=== PATIENT | male | born 1940 | race Caucasian/White ===

== ENCOUNTER 2017-05-29 06:56 | Day surgery (SDC) | payer MEDICARE ==
[2017-05-29 08:11] VITALS: BP 143/71; TEMP 97.8
--- NOTE | 2017-05-29 09:24 | RAD ---
LUMBAR SPINE: Lateral flexion/extension views of the lumbar spine with bending views. 4 view series FINDINGS: Neutral view reveals no significant subluxation. No compression fracture. There is disc degenerative narrowing within the imaged low thoracic and lumbar spine, notably at the lumbosacral junction. Promi nent facet osteoarthritis seen at the mid to lower lumbar spine. There is atherosclerosis. IMPRESSION: No obvious abnormal translational motion, or significant subluxation. POS: [facility]
--- NOTE | 2017-05-29 09:38 | RAD ---
LUMBAR SPINE MYELOGRAM: INDICATION: Low back pain and lumbar radiculopathy. PROCEDURE: Informed consent was obtained, and the patient was transferred to the interventional suite. Early Breastfeeding Care Specialist im aging was performed prior to the procedure. The patient was then placed into a prone position, and the low back was prepped and draped in the sta ndard sterile fashion. Topical anesthesia was achieved with 1% lidocaine buffered with sodium bicarb ibis. Using a 22 gauge needle, uneventful access was obtained into the thecal sac from a right inte rlaminar approach at the L4-5 level. Clear color CSF was noted at the needle hub. Subsequently, 9 c c of Isovue M200 was instilled into the thecal sac. This was performed under real-time fluoroscopy w ith appropriate contrast opacification of the thecal sac demonstrated during the exam with adequate c ontrast opacification achieved. The needle was removed. The patient tolerated the procedure well wi thout evidence of complication. The patient was then transferred to CT Department to undergo further imaging. Please reference separate CT myelogram for additional details. Radiation Exposure Data: 0.1 minute intermittent fluoroscopy. IMPRESSION: Technically successful lumbar spine myelogram. POS: [facility]
--- NOTE | 2017-05-29 10:15 | CT ---
LUMBAR SPINE CT WITH CONTRAST CT LUMBAR MYELOGRAM: CLINICAL HISTORY: Lumbar radiculopathy. FINDINGS: The conus medullaris terminates at the L1 level. Multilevel end plate degenerative change is present . There is disk space narrowing of the L5-S1 level. No significant subluxation or compression defor mity. Multilevel bilateral facet osteoarthritis is present, the greatest inferiorly. 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 L5-S1: No significant compromise of the central canal. There is mild osseous narrowing of the left neural foramen. No significant right foraminal compromise. L4-5: There is moderate central canal stenosis as a result of broad-based disk-osteophyte complex. There is mild left foraminal narrowing. No high-grade right foraminal stenosis. L3-4: Moderate central canal stenosis results in broad-based disk-osteophyte present. There is mode rate left foraminal stenosis and minimal narrowing of the right neural foramen. L2-3: There is mild central canal stenosis due to broad-based disk-osteophyte. There is mild left f oraminal narrowing. No high-grade right foraminal compromise. L1-2: There is no significant compromise of central canal or neural foramina. IMPRESSION: 1. 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 Multilevel degenerativ e changes are outlined above. 2. Incidental note of vascular disease as above. POS: [facility]
[2017-05-29 11:24] VITALS: BMI 26.0
[2017-05-29] MEDS ORDERED: Iopamidol-M 200 41% 20 ML VIAL ONE (13:20)
== END 2017-05-29 10:05 | disposition home or self-care (01) ==
LOC: RAD 06:56
PROVIDERS: ATTEND Physician Assistant Surgical
PROC: B00B1ZZ Plain Radiography of Spinal Cord using Low Osmolar Contrast (ICD-10-PCS; principal; 2017-05-29)
DX: M54.16 Radiculopathy, lumbar region (principal); Z88.1 Allergy status to other antibiotic agents; Z88.2 Allergy status to sulfonamides
CPT/HCPCS: 62304; 72100; 72132

== ENCOUNTER 2017-10-28 10:17 | Outpatient (CLI) | payer MEDICARE ==
--- NOTE | 2017-10-28 12:21 | RAD ---
TWO VIEWS CHEST: HISTORY: Dyspnea. COMPARISON: 10/18/2016 FINDINGS: Two views of the chest show a cardiomediastinal silhouette, which is at the upper limits of normal in size. The patient is status post sternotomy. There is a stable small left pleural effusion. Incre ased interstitial markings are present. IMPRESSION: Small stable left pleural effusion. POS: [facility]
== END 2017-10-28 10:18 | disposition home or self-care (01) ==
LOC: RAD 10:17
PROVIDERS: ATTEND Internal Medicine Pulmonary Disease
DX: R06.00 Dyspnea, unspecified (principal); J90 Pleural effusion, not elsewhere classified
CPT/HCPCS: 71046

== ENCOUNTER 2018-03-06 10:30 | Inpatient (IN) | payer MEDICARE ==
[2018-03-06] MEDS ORDERED: Acetaminophen 500 MG TAB ONE (11:14)
[2018-03-06 11:21] LABS: #Basophils 0.1 thou/uL (0.0-0.2); #Lymphocytes 1.5 thou/uL (1.20-3.40); #Monocytes 1.6 thou/uL (0.11-0.59); #Neutrophils 10.1 thou/uL (1.40-6.50); %Basophils 0.6 % (0.0-1.0); %Eosinophils 0.3 % (0.0-10.0); %Monocytes 11.7 % (0.0-10.0); %Neutrophils 76.4 % (42.0-75.0); Hemoglobin 14.7 g/dL (14.0-18.0); Mean Corpuscular Hemoglobin 26.1 pg (27.0-31.0); Mean Platelet Volume 11.9 fL (7.4-10.4); Platelet Count 234 thou/uL (130-400); RBC Distribution Width 13.4 % (11.5-14.5); Red Blood Cell (RBC) Count 5.62 mill/uL (4.70-6.10); White Blood Cell (WBC) Count 13.3 thou/uL (4.8-10.8)
[2018-03-06 11:35] LABS: ALT (SGPT) 22 U/L (8-55); AST (SGOT) 16 U/L (5-34); Albumin 4.1 g/dL (3.4-4.8); Alkaline Phosphatase 89 U/L (40-150); Anion Gap 14 mmol/L (10-20); BUN (Urea Nitrogen) 8 mg/dL (8.4-25.7); Bilirubin, Total 0.8 mg/dL (0.2-1.2); Calc. Creatinine Clearance 0 mL/min (70-130); Calcium 9.6 mg/dL (7.8-10.44); Carbon Dioxide 26 mmol/L (23-31); Chloride 102 mmol/L (98-107); Estimated GFR-MDRD 87; Globulin 3.8 g/dL (2.4-3.5); Glucose 118 mg/dL (83-110); Potassium 3.9 mmol/L (3.5-5.1); Protein, Total 7.9 g/dL (5.8-8.1); Sodium 138 mmol/L (136-145)
[2018-03-06 11:39] LABS: CKMB 1.4 ng/mL (0-6.6); Troponin I Less than 0.010 ng/mL (< 0.028)
[2018-03-06] MEDS ORDERED: Cefepime 2 GM VIAL ONE (11:39)
[2018-03-06 11:57] LABS: Bilirubin Negative (Negative); Blood, Urine Negative (Negative); Clarity Slightly Cloudy (Clear); Glucose, Urine (Dipstick) Negative (Negative); Leukocyte Negative (Negative); Nitrite Negative (Negative); Protein, Urine (Dipstick) Trace mg/dL (Neg-Trace); Urobilinogen 0.2 mg/dL (0.2-1.0); pH, Urine 5.5 (5.0-9.0)
--- NOTE | 2018-03-06 12:09 | RAD ---
PA AND LATERAL CHEST: HISTORY: Cough. Shortness of breath. COMPARISON: 09/21/2016 FINDINGS: Interval changes of median sternotomy are seen with postop changes of valvular placement. No lobar c onsolidation, pneumothoraces, or large effusions are seen. There are degenerative changes in the spi ne. The heart size is normal. The aorta is tortuous. Chronic changes are again seen bilaterally. Postop changes in the left lung are redemonstrated. IMPRESSION: Stable examination. POS: [facility]
[2018-03-06 15:38] VITALS: BMI 27.0
[2018-03-06] MEDS ORDERED: Ondansetron ODT 4 MG TAB PO PRN (16:20)
[2018-03-06] MEDS ORDERED: Ondansetron PF 4 MG/2 ML Vial IVP PRN (16:20)
--- NOTE | 2018-03-06 17:12 | HP ---
DATE OF ADMISSION: 03/06/2018 PRIMARY CARE PHYSICIAN: Keegan Porras M.D. PRIMARY LAUNDRY WORKER: Elmo Bloom M.D.. REASON FOR COMPLAINT: Fever with shortness of breath. HISTORY OF PRESENT ILLNESS: Patient is a 77-year-old male with chronic respiratory failure, on home oxygen, and COPD, presented to the emergency room with above complaints. Over the last two days, the patient developed gradual worsening shortness of breath along with fever. His temperature earlier today was around 100 degrees along with intermittent chills. He also had cough with minimal production. He felt generally weak and fatigued. No nausea, vomiting, diarrhea, dysuria, hematuria, urgency, or skin rash reported. He also noticed that his oxygenation was dropping in high 80s despite oxygen supplementation. For this reason, he presented to the emergency room. In the emergency room, his temperature was 102.4 rectally with pulse rate of 123 , blood pressure 124/80, respiration of 25 with O2 saturation of 93% on 2 liter nasal cannula. He received cefepime and Levaquin in the emergency room with IV fluids and Tylenol. PAST MEDICAL HISTORY: 1. Paroxysmal atrial fibrillation. 2. Gastroesophageal reflux disease. 3. Chronic respiratory failure, on home oxygen. 4. Benign prostatic hypertrophy. 5. Chronic obstructive pulmonary disease. 6. Rheumatoid arthritis. 7. Hypertension. PAST SURGICAL HISTORY: 1. Aortic valve replacement. 2. Inguinal hernia surgery. 3. Sinus surgeries. 4. Thoracotomy in 1969 for empyema. 5. Aortic valve replacement. ALLERGIES: Patient is allergic to DOXYCYCLINE, ERYTHROMYCIN, SULFA, and TRIMETHOPRIM. CURRENT HOME MEDICATIONS: Lipitor 10 mg at bedtime, Symbicort 2 puffs b.i.d., vitamin D3 2000 units daily, finasteride 5 mg daily, gabapentin 300 mg twice a day, Plaquenil 200 mg b.i.d., probiotics daily, Protonix 40 mg daily, Flomax 0.4 mg at bedtime, Spiriva daily, aspirin 325 mg daily. SOCIAL HISTORY: Patient currently lives at home with his family. He denies any smoking. He drinks alcohol on a daily basis. He denies any withdrawals in the past. SOCIAL HISTORY: He is FULL CODE, makes his own decisions with the help of his family. FAMILY HISTORY: Negative for premature coronary artery disease. REVIEW OF SYSTEMS: The following complete review of systems was negative, unless otherwise mentioned in the HPI or below: Constitutional: Weight loss or gain, ability to conduct usual activities. Skin: Rash, itching. Eyes: Double vision, pain. ENT/Mouth: Nose bleeding, neck stiffness, pain, tenderness. Cardiovascular: Palpitations, dyspnea on exertion, orthopnea. Respiratory: Shortness of breath, wheezing, cough, hemoptysis, fever or night sweats. Gastrointestinal: Poor appetite, abdominal pain, heartburn, nausea, vomiting, constipation, or diarrhea. Genitourinary: Urgency, frequency, dysuria, nocturia. Musculoskeletal: Pain, swelling. Neurologic/Psychiatric: Anxiety, depression. Allergy/Immunologic: Skin rash, bleeding tendency. PHYSICAL EXAMINATION: VITAL SIGNS: As discussed above. GENERAL: A 77-year-old male, ill-appearing with intermittent coughing. HEENT: Head atraumatic, normocephalic. Sclerae are anicteric. Dry mucous membrane, no oral lesion. NECK: Supple, no JVD, no carotid bruit. LUNGS: Showed diffuse rales, especially at the right base with scattered rhonchi. Minimal wheezing appreciated. No significant accessory muscle use. HEART: S1, S2 present. Regular rate and rhythm. No rubs or gallops appreciated, 2/6 systolic murmur over the mitral area. ABDOMEN: Soft, nontender, somewhat distended. No guarding or rigidity. EXTREMITIES: No edema or calf tenderness. NEUROLOGIC: Grossly nonfocal, moves all four extremities. PSYCHIATRY: Alert, awake, oriented x3. SKIN: Warm and dry. LYMPH NODES: No palpable lymph nodes in the neck. PERIPHERAL VASCULAR: Radial pulses palpable bilaterally. MUSCULOSKELETAL: No joint swelling or tenderness. LABORATORY FINDINGS: WBC 13.3 with hemoglobin 14.7, hematocrit 47.2, platelet 234. Chemistries showed sodium 138, potassium 3.9, chloride 102, bicarbonate 26 , BUN 8, creatinine 0.85. Troponin negative. BNP 53.6. Lactic acid 1.6. Chest x-ray by my review showed questionable infiltrate at the right base. Influenza testing was negative. EKG by my review showed sinus rhythm with left bundle branch block. IMPRESSION: 1. Acute on chronic hypoxic respiratory failure secondary to community- acquired pneumonia, suspected pneumococcal. 2. Sepsis secondary to pneumonia. 3. Hypertension. 4. Daily alcohol use. 5. Gastroesophageal reflux disease. 6. Paroxysmal atrial fibrillation. 7. Chronic obstructive pulmonary disease. 8. Chronic kidney disease stage 2. 9. Benign prostatic hypertrophy. 10. Hyperlipidemia. 11. Left bundle branch block. 12. History of aortic valve replacement. PLAN: The patient will be monitored on the medical floor. We will continue cefepime, Levaquin. We will resume home medications. Continue O2 supplementation. Add thiamine, folic acid, multivitamin. A.m. labs. We will consult Dr. Bloom in a.m. DVT prophylaxis with sequential compression devices. We will consider Lovenox if patient unable to ambulate. Plan of care was discussed with the patient and the family in detail. They stated understanding. MTDD
[2018-03-06] MEDS: Sodium Chloride 0.9% 1,000 ML IV SCH (17:14)
[2018-03-06] MEDS: Mometasone/Formoterol 120 PUFF INHALER INH SCH (18:11)
[2018-03-06] MEDS: Tamsulosin HCl 0.4 MG CAP PO SCH (20:24)
[2018-03-06] MEDS: Gabapentin 300 MG CAP PO SCH (20:24)
[2018-03-06] MEDS: Hydroxychloroquine Sulfate 200 MG TAB PO SCH (20:25)
[2018-03-06] MEDS: guaiFENesin ER 600 MG TAB PO SCH (20:25)
[2018-03-06] MEDS: Atorvastatin Calcium 10 MG TAB PO SCH (20:25)
[2018-03-06] MEDS: Acetaminophen 325 MG TAB PO PRN (20:26)
[2018-03-06] MEDS ORDERED: Famotidine 20 MG TAB PO SCH (21:00)
[2018-03-06] MEDS: Cefepime 1 GM in Sodium Chloride 0.9% 100 ML IVPB SCH (23:46)
[2018-03-07] MEDS: Acetaminophen 325 MG TAB PO PRN ×3 (00:46→21:17)
[2018-03-07 04:58] LABS: #Lymphocytes 1.4 thou/uL (1.20-3.40); #Monocytes 1.9 thou/uL (0.11-0.59); #Neutrophils 10.6 thou/uL (1.40-6.50); %Basophils 0.3 % (0.0-1.0); %Eosinophils 0.1 % (0.0-10.0); %Lymphocytes 9.9 % (21.0-51.0); %Monocytes 13.6 % (0.0-10.0); %Neutrophils 76.1 % (42.0-75.0); Hemoglobin 12.6 g/dL (14.0-18.0); Mean Corpuscular HGB CONC 31.5 g/dL (32.0-36.0); Mean Corpuscular Hemoglobin 27.3 pg (27.0-31.0); Mean Corpuscular Volume 86.6 fL (78.0-98.0); Mean Platelet Volume 10.1 fL (7.4-10.4); Platelet Count 226 thou/uL (130-400); RBC Distribution Width 13.2 % (11.5-14.5); Red Blood Cell (RBC) Count 4.61 mill/uL (4.70-6.10)
[2018-03-07 04:59] LABS: ALT (SGPT) 14 U/L (8-55); AST (SGOT) 13 U/L (5-34); Albumin 3.1 g/dL (3.4-4.8); Alkaline Phosphatase 72 U/L (40-150); Anion Gap 13 mmol/L (10-20); BUN (Urea Nitrogen) 8 mg/dL (8.4-25.7); Bilirubin, Total 0.8 mg/dL (0.2-1.2); Calc. Creatinine Clearance 101 mL/min (70-130); Calcium 8.6 mg/dL (7.8-10.44); Carbon Dioxide 23 mmol/L (23-31); Chloride 106 mmol/L (98-107); Estimated GFR-MDRD Greater than 90; Globulin 3.1 g/dL (2.4-3.5); Glucose 99 mg/dL (83-110); Magnesium 1.7 mg/dL (1.6-2.6); Phosphorus 3.1 mg/dL (2.3-4.7); Potassium 3.7 mmol/L (3.5-5.1); Protein, Total 6.2 g/dL (5.8-8.1); Sodium 138 mmol/L (136-145)
[2018-03-07] MEDS: Mometasone/Formoterol 120 PUFF INHALER INH SCH ×2 (06:48→18:17)
[2018-03-07] MEDS ORDERED: Spiriva 18 MCG CAP (Box of 5 Caps) INH SCH (07:00)
[2018-03-07] MEDS: Finasteride 5 MG TAB PO SCH (08:55)
[2018-03-07] MEDS: Folic Acid 1 MG TAB PO SCH (08:55)
[2018-03-07] MEDS: Aspirin 325 MG TAB PO SCH (08:55)
[2018-03-07] MEDS: Saccharomyces boulardii 250 MG CAP PO SCH (08:55)
[2018-03-07] MEDS: Hydroxychloroquine Sulfate 200 MG TAB PO SCH ×2 (08:55→21:17)
[2018-03-07] MEDS: Multivit, Therapeutic 1 TAB PO SCH (08:55)
[2018-03-07] MEDS: guaiFENesin ER 600 MG TAB PO SCH ×2 (08:55→21:17)
[2018-03-07] MEDS: Gabapentin 300 MG CAP PO SCH ×2 (08:56→21:17)
[2018-03-07] MEDS: predniSONE 20 MG TAB PO SCH ×2 (08:59→21:17)
[2018-03-07] MEDS ORDERED: Non-Formulary Item 1 EACH (Tiotropium Bromide [Spiriva Respimat] 2 INH) IH SCH (09:00)
[2018-03-07] MEDS ORDERED: Saccharomyces boulardii 250 MG CAP PO SCH (09:00)
--- NOTE | 2018-03-07 10:59 | CON ---
DATE OF CONSULTATION: 03/07/2018 HISTORY OF PRESENT ILLNESS: A 77-year-old gentleman who is well known to me, presented yesterday with low grade fever, cough, yellow sputum and vague right- sided chest pain. He was just fitted with a chest vest, which is a for his chronic bronchitis and bronchiectasis. Apparently, the vest was a little bit too small. It is possibly that could be causing his right-sided flank pain , which he describes as muscle twitching. No hemoptysis. His temperature was 98. In the ER, his sats were 93 on 2 liters , blood pressure was 124/80, respiration 23. The patient has a longstanding history of previous tobacco abuse, though he has quit smoking many years ago. He has chronic bronchitis and bronchiectasis with extensive ongoing chronic mucus production. He has received cyclic antibiotics for a whole year and now he has been placed on a vest to decrease his chronic symptoms. PAST MEDICAL HISTORY: Otherwise, pertinent for previous coronary artery disease , atrial fibrillation, reflux, chronic cough. PAST SURGICAL HISTORY: Included left-sided surgery for empyema years ago, history of recent abdominal aortic aneurysm repair percutaneously, history of aortic stenosis, status post aortic valve replacement, history of aortic valve replacement surgery. MEDICATIONS: List of medicine from home includes Spiriva, Symbicort 160, nebulizer, low flow O2, aspirin, Lipitor. ALLERGIES: SULFA, ERYTHROMYCIN. medication now,Maxipime, Levaquin, Plaquenil. No steroids. PHYSICAL EXAMINATION: GENERAL: He is in mild distress. VITAL SIGNS: Sats are 90 on 2 liters, respiration rate 18, temperature 100.2, pulse 104, blood pressure 120/69. CHEST: Decreased breath sounds, bilateral rhonchi. CARDIAC: Normal S1, S2. No gallops. ABDOMEN: Soft. No mass. LABORATORY DATA: White count 14,000, H&H is 12 and 39, platelet count is normal. Electrolytes are normal. X-RAY FINDINGS: X-ray shows bibasilar chronic scarring, no acute infiltrates seen. IMPRESSION: 1. Acute on chronic respiratory failure, superimposed bronchitis. 2. Chronic bronchiectasis. 3. Status post aortic valve surgery. 4. History of atrial fibrillation. PLAN: Sputum is being ordered for culture. Otherwise, continue antibiotics, steroids, nebulizer treatments, supportive care. We will follow. This is a consultation note of 70 minutes, in which 50% spent in direct patient care. CABRERA
[2018-03-07] MEDS: Cefepime 1 GM in Sodium Chloride 0.9% 100 ML IVPB SCH (12:05)
--- NOTE | 2018-03-07 13:47 | PDOC.PN ---
- Subjective Encounter Start Date: 03/07/18 Encounter Start Time: 13:35 Subjective: f/u for sepsis suspected secondary to PNA. Overall feeling ok and -: appetite improved. Currently on baseline home O2 supplementation. - Objective Resuscitation Status: Resuscitation Status FULL:Full Resuscitation MAR Reviewed: Yes Vital Signs & Weight: Vital Signs (12 hours) Temp Pulse Resp BP BP BP Pulse Ox 03/07/18 11:30 98.6 F 105 H 16 145/77 H 03/07/18 10:31 100 14 03/07/18 08:52 100 03/07/18 08:00 100 03/07/18 07:48 100.2 F H 104 H 18 126/69 90 L 03/07/18 06:50 90 14 03/07/18 04:00 99.0 F 98 20 125/72 90 L 03/07/18 02:31 101 H 18 91 L Weight Admit Weight 193 lb 14.4 oz Weight 193 lb 14.4 oz I&O: 03/06/18 03/07/18 03/08/18 06:59 06:59 06:59 Intake Total 560 Output Total 700 Balance -140 Result Diagrams: 03/07/18 04:15 03/07/18 04:15 Additional Labs: Microbiology 03/06/18 11:38 Nasopharynx - Pending Influenza Types A,B Direct EIA - Final 03/06/18 11:40 Urine voided Urine Culture - Preliminary NO GROWTH AT 12 HOURS 03/06/18 11:12 Venous blood - Left Arm Blood Culture - Preliminary Specimen has been received and culture in progress. No Growth to date. 03/06/18 11:05 Venous blood - Right Arm Blood Culture - Preliminary Specimen has been received and culture in progress. No Growth to date. Laboratory Tests 03/06/18 03/06/18 03/07/18 11:05 11:05 04:15 WBC 13.3 H Neutrophils % 76.4 H 76.1 H Lactic Acid 1.6 Radiology Reviewed by me: Yes (PCXR - chronic changes noted, LLL scarring) Phys Exam - Physical Examination Constitutional: NAD HEENT: PERRLA, sclera anicteric, oral pharynx no lesions Neck: no nodes, no JVD, supple, full ROM diminished in LLL S1, S2 Cardiovascular: RRR, no rub, gallop Gastrointestinal: soft, non-tender, no distention, positive bowel sounds Musculoskeletal: no edema, pulses present Neurological: normal sensation, moves all 4 limbs Psychiatric: normal affect, A&O x 3 Skin: normal turgor, cap refill <2 seconds Dx/Plan (1) Sepsis Code(s): A41.9 - SEPSIS, UNSPECIFIED ORGANISM Status: Acute Comment: Suspected due to PNA, continue Cefepime and Levaquin, follow final blood/ucx results (2) Pneumonia, bacterial Code(s): J15.9 - UNSPECIFIED BACTERIAL PNEUMONIA Status: Acute Comment: Suspected given chronic lung changes, continue Cefepime/Levaquin, Prednisone (3) Chronic respiratory failure with hypoxia Code(s): J96.11 - CHRONIC RESPIRATORY FAILURE WITH HYPOXIA Status: Chronic Comment: Baseline O2 level via NC (4) COPD (chronic obstructive pulmonary disease) Status: Chronic Comment: Chronic and stable, general pulmonary supportive mgmt - Plan cont current plan of care, plan discussed w/ family, continue antibiotics, PT/OT , social media content manager, respiratory therapy, out of bed/ambulate, DVT proph w/SCDs Stable overall -: Continue Prednisone -: Continue Dulera -: Continue Levaquin/Cefepime/Duonebs -: OOB/ambulate * AM lab: BMP, CBC * ? Home in 24h
[2018-03-07] MEDS: Sodium Chloride 0.9% 1,000 ML IV SCH (14:00)
[2018-03-07] MEDS: Atorvastatin Calcium 10 MG TAB PO SCH (21:17)
[2018-03-07] MEDS: Tamsulosin HCl 0.4 MG CAP PO SCH (21:17)
[2018-03-08] MEDS: Cefepime 1 GM in Sodium Chloride 0.9% 100 ML IVPB SCH ×2 (00:09→12:42)
[2018-03-08 04:42] LABS: Anion Gap 10 mmol/L (10-20); BUN (Urea Nitrogen) 9 mg/dL (8.4-25.7); Calc. Creatinine Clearance 104 mL/min (70-130); Carbon Dioxide 25 mmol/L (23-31); Chloride 108 mmol/L (98-107); Estimated GFR-MDRD Greater than 90; Glucose 161 mg/dL (83-110); Potassium 4.2 mmol/L (3.5-5.1); Sodium 139 mmol/L (136-145)
[2018-03-08 05:20] LABS: Band 3 % (5-11); Hemoglobin 12.3 g/dL (14.0-18.0); Lymphocytes 9 % (21-51); MDiff Complete? YES; Mean Corpuscular HGB CONC 31.8 g/dL (32.0-36.0); Mean Corpuscular Hemoglobin 27.5 pg (27.0-31.0); Mean Corpuscular Volume 86.5 fL (78.0-98.0); Mean Platelet Volume 9.8 fL (7.4-10.4); Monocytes 8 % (0-10); Neutrophil 79 % (42-75); PLT Morphology Comment Appears Adequate; Platelet Count 251 thou/uL (130-400); RBC Morphology Normal; Reactive Lymphocytes 1 % (0-10); Red Blood Cell (RBC) Count 4.48 mill/uL (4.70-6.10); White Blood Cell (WBC) Count 12.6 thou/uL (4.8-10.8)
[2018-03-08 07:51] VITALS: TEMP 98.4
[2018-03-08] MEDS: Mometasone/Formoterol 120 PUFF INHALER INH SCH (07:52)
[2018-03-08] MEDS: Aspirin 325 MG TAB PO SCH (08:07)
[2018-03-08] MEDS: guaiFENesin ER 600 MG TAB PO SCH (08:07)
[2018-03-08] MEDS: Finasteride 5 MG TAB PO SCH (08:07)
[2018-03-08] MEDS: Sodium Chloride 0.9% 1,000 ML IV SCH (08:08)
[2018-03-08] MEDS: predniSONE 20 MG TAB PO SCH (08:08)
[2018-03-08] MEDS: Multivit, Therapeutic 1 TAB PO SCH (08:08)
[2018-03-08] MEDS: Folic Acid 1 MG TAB PO SCH (08:08)
[2018-03-08] MEDS: Saccharomyces boulardii 250 MG CAP PO SCH (08:08)
[2018-03-08] MEDS: Hydroxychloroquine Sulfate 200 MG TAB PO SCH (08:08)
[2018-03-08] MEDS: Gabapentin 300 MG CAP PO SCH (08:08)
[2018-03-08 11:20] VITALS: BP 135/76
--- NOTE | 2018-03-08 13:34 | PDOC.PN ---
- Subjective Encounter Start Date: 03/08/18 Encounter Start Time: 09:40 Pt seen for followup re: acute on chronic hypoxic respiratory failure. Denies chest pain, shortness of breath, fevers or chills. - Objective Resuscitation Status: Resuscitation Status FULL:Full Resuscitation Vital Signs & Weight: Vital Signs (12 hours) Temp Pulse Resp BP BP Pulse Ox 03/08/18 11:19 98.4 F 92 16 135/76 93 L 03/08/18 10:46 100 24 H 03/08/18 07:55 93 L 03/08/18 07:52 96 20 93 L 03/08/18 07:50 96 20 93 L 03/08/18 07:47 98.4 F 96 16 145/78 H 96 03/08/18 04:00 98.2 F 100 22 H 158/74 H 92 L 03/08/18 02:24 94 14 92 L Weight Admit Weight 193 lb 14.4 oz Weight 193 lb 14.4 oz I&O: 03/07/18 03/08/18 03/09/18 06:59 06:59 06:59 Intake Total 560 840 Output Total 700 900 Balance -140 -60 Result Diagrams: 03/08/18 04:17 03/08/18 04:17 Phys Exam - Physical Examination Constitutional: NAD HEENT: moist MMs Neck: supple Respiratory: clear to auscultation bilateral Cardiovascular: RRR Gastrointestinal: soft Neurological: moves all 4 limbs Psychiatric: normal affect Dx/Plan (1) Acute and chronic respiratory failure with hypoxia Code(s): J96.21 - ACUTE AND CHRONIC RESPIRATORY FAILURE WITH HYPOXIA Status: Acute Comment: secondary to chronic bronchitis, improving (2) COPD (chronic obstructive pulmonary disease) Status: Chronic Comment: pulmonology following (3) BPH (benign prostatic hyperplasia) Code(s): N40.0 - BENIGN PROSTATIC HYPERPLASIA WITHOUT LOWER URINRY TRACT SYMP Status: Chronic Comment: stable (4) Hyperlipidemia Code(s): E78.5 - HYPERLIPIDEMIA, UNSPECIFIED Status: Chronic Comment: continue statin - Plan * . Review of Systems - Review of Systems Cardiovascular: negative: chest pain, palpitations, orthopnea, paroxysmal nocturnal dyspnea, edema, light headedness Gastrointestinal: negative: Nausea, Vomiting, Abdominal Pain, Diarrhea, Constipation, Melena, Hematochezia - Medications/Allergies Allergies/Adverse Reactions: Allergies Allergy/AdvReac Type Severity Reaction Status Date / Time erythromycin base Allergy Intermediate WELPS Verified 05/28/17 12:26 [Erythromycin Base] sulfamethoxazole Allergy Intermediate NOT SURE Verified 05/28/17 12:26 [From Bactrim] OF REACTION doxycycline Allergy Verified 05/28/17 12:26 trimethoprim [From Bactrim] Allergy Verified 05/28/17 12:26 Medications: Current Medications Acetaminophen (Tylenol) 650 mg PO Q4H PRN PRN Reason: Headache/Fever/Mild Pain (1-3) Last Admin: 03/07/18 21:17 Dose: 650 mg Albuterol/Ipratropium (Duoneb) 3 ml NEB [id number] [facility] Last Admin: 03/08/18 10:46 Dose: 3 ml Albuterol/Ipratropium (Duoneb) 3 ml NEB [id number] PRN PRN Reason: SOB &/or Wheezing Aspirin (Aspirin) 325 mg PO DAILY [facility] Last Admin: 03/08/18 08:07 Dose: 325 mg Atorvastatin Calcium (Lipitor) 10 mg PO HS [facility] Last Admin: 03/07/18 21:17 Dose: 10 mg Cholecalciferol (Vitamin D3) 2,000 units PO DAILY [facility] Last Admin: 03/08/18 08:08 Dose: 2,000 units Finasteride (Proscar) 5 mg PO DAILY [facility] Last Admin: 03/08/18 08:07 Dose: 5 mg Folic Acid (Folvite) 1 mg PO DAILY [facility] Last Admin: 03/08/18 08:08 Dose: 1 mg Gabapentin (Neurontin) 300 mg PO BID [facility] Last Admin: 03/08/18 08:08 Dose: 300 mg Guaifenesin (Mucinex) 600 mg PO Q12HR [facility] Last Admin: 03/08/18 08:07 Dose: 600 mg Hydroxychloroquine Sulfate (Plaquenil) 200 mg PO BID [facility] Last Admin: 03/08/18 08:08 Dose: 200 mg Sodium Chloride (Normal Saline 0.9%) 1,000 mls @ 50 mls/hr IV .Q20H [facility] Stop: 03/08/18 16:31 Last Admin: 03/08/18 08:08 Dose: Not Given Cefepime HCl 1 gm/ Sodium (Chloride) 100 mls @ 200 mls/hr IVPB 1200,2359 [facility] Last Admin: 03/08/18 12:42 Dose: Not Given Levofloxacin 500 mg/ Device 100 mls @ 100 mls/hr IVPB 1200 [facility] Last Admin: 03/08/18 12:42 Dose: Not Given Miscellaneous Medication (Pharmacy To Dose) 1 each IVPB PRN PRN PRN Reason: Pharmacy to dose Mometasone Furoate/Formoterol Fumar (Dulera 200 Mcg/5 Mcg Inhaler) 2 puff INH BID-RT [facility] Last Admin: 03/08/18 07:52 Dose: 2 puff Multivitamins (Theragran) 1 tab PO DAILY [facility] Last Admin: 03/08/18 08:08 Dose: 1 tab Ondansetron HCl (Zofran Odt) 4 mg PO Q6H PRN PRN Reason: Nausea/Vomiting Ondansetron HCl (Zofran) 4 mg IVP Q6H PRN PRN Reason: Nausea/Vomiting Pantoprazole Sodium (Protonix) 40 mg PO 2100 [facility] Last Admin: 03/07/18 21:17 Dose: 40 mg Prednisone (Prednisone) 20 mg PO BID [facility] Last Admin: 03/08/18 08:08 Dose: 20 mg Saccharomyces Boulardii (Florastor) 250 mg PO DAILY [facility] Last Admin: 03/08/18 08:08 Dose: 250 mg Sodium Chloride (Flush - Normal Saline) 10 ml IVF PRN PRN PRN Reason: Saline Flush Tamsulosin HCl (Flomax) 0.4 mg PO HS [facility] Last Admin: 03/07/18 21:17 Dose: 0.4 mg Thiamine HCl (Thiamine) 100 mg PO DAILY [facility] Last Admin: 03/08/18 08:08 Dose: 100 mg
--- NOTE | 2018-03-08 15:01 | PRG ---
DATE OF SERVICE: 03/08/18 SUBJECTIVE: Td Stone is much better this morning. He is eager to go home. OBJECTIVE: VITAL SIGNS: His sats are 90 on 2 liters, respirations 16, temperature 98, blood pressure 135/76. CHEST: Bilateral rhonchi and crackles. CARDIAC: Normal S1 and S2. ABDOMEN: Soft, no masses. LABORATORY DATA: So far sputum, no growth. White count 12,000. IMPRESSION: 1. Chronic bronchitis, bronchiectasis. 2. Chest pain, probably musculoskeletal. PLAN: He is being discharged home on p.o. antibiotics. Follow up with Dr. Bloom as needed.
--- NOTE | 2018-03-08 20:10 | DIS ---
DATE OF ADMISSION: 03/06/2018 DATE OF DISCHARGE: 03/08/2018 PRIMARY CARE PROVIDER: Dr. Keegan Porras. DISCHARGE DIAGNOSES: 1. Acute on chronic hypoxic respiratory failure. 2. Bronchitis. CONDITION OF PATIENT ON THE DAY OF DISCHARGE: Stable. I assessed Mr. Stone on the day of discharg e. Please refer to my daily progress note for further details regarding this [id number] encounter. DISCHARGE MEDICATIONS: In addition to his home medications as dictated by Dr. Akhtar in history and p hysical note dated 03/06/2018, he is being discharged home on levofloxacin 500 mg daily for 7 days an d prednisone as prescribed by Pulmonology Service. CONSULTATION DURING THIS HOSPITALIZATION: Pulmonology, Dr. Bloom. HOSPITAL COURSE: Mr. Stone is a pleasant 77-year-old gentleman who was admitted to [facility] on 03/06/2018. Please refer to Dr. Akhtar's history and physical note dated 2017 for further details. He was treated with antibiotics and steroids. He was seen by Pulmonology Service. He improved clinically. He is being discharged home in a stable condition. LABORATORY DATA: On the day of discharge, his white count 12,600, hemoglobin 12.3, platelet count 25 1,000. Sodium 139, potassium 4.2 and creatinine 0.73. Many thanks for allowing me to participate in your patient's care. Please feel free to contact me wi th any questions or concerns. DISCHARGE DESTINATION: Home. TOTAL AMOUNT OF TIME SPENT COORDINATING THIS DISCHARGE: 32 minutes.
== END 2018-03-08 15:06 | disposition home or self-care (01) | DRG 871 ==
LOC: SCSER 10:30 → T4-A 12:55
PROVIDERS: ADMIT Internal Medicine Infectious Disease; ATTEND Internal Medicine Infectious Disease
DX: A41.9 Sepsis, unspecified organism (principal); J96.21 Acute and chronic respiratory failure with hypoxia; J15.9 Unspecified bacterial pneumonia; J44.0 Chronic obstructive pulmonary disease with (acute) lower respiratory infection; Z99.81 Dependence on supplemental oxygen; I48.0 Paroxysmal atrial fibrillation; K21.9 Gastro-esophageal reflux disease without esophagitis; N40.0 Benign prostatic hyperplasia without lower urinary tract symptoms; M06.9 Rheumatoid arthritis, unspecified; I12.9 Hypertensive chronic kidney disease with stage 1 through stage 4 chronic kidney disease, or unspecified chronic kidney disease; N18.2 Chronic kidney disease, stage 2 (mild); F10.10 Alcohol abuse, uncomplicated; E78.5 Hyperlipidemia, unspecified; I44.7 Left bundle-branch block, unspecified; Z95.2 Presence of prosthetic heart valve; J47.9 Bronchiectasis, uncomplicated
CPT/HCPCS: 36415; 71046; 80048; 80053; 81003; 82553; 83605; 83735; 83880; 84100; 84484; 85007; 85025; 85027; 87040; 87070; 87086; 87205; 87804; 93005; 94640; 96365; 96367; J0692; J1956; J7050; J7506; J7620

== ENCOUNTER 2018-03-26 03:54 | Inpatient (IN) | payer MEDICARE ==
[2018-03-26] MEDS ORDERED: Vancomycin HCl 1.5 GM in Sodium Chloride 0.9% 250 ML 300 ML IVPB SCH (08:00)
[2018-03-26] MEDS ORDERED: Bupivacaine HCl 0.5%/Epinephrine 1:200,000/PF 30 ml Vial ONE (08:29)
[2018-03-26] MEDS ORDERED: methylPREDNISolone Sod Succ/PF 125 MG/2 ML VIAL IVP SCH (09:00)
[2018-03-26] MEDS ORDERED: Midazolam HCl 2 mg/2 ml Vial ONE (09:23)
[2018-03-26] MEDS ORDERED: Fentanyl 100 MCG/2 ML VIAL ONE ×3 (09:23→11:39)
[2018-03-26] MEDS ORDERED: Bupivacaine 0.25% HCL 30 ML VIAL ONE (09:28)
[2018-03-26] MEDS ORDERED: Promethazine HCl 25 MG/ML VIAL IM PRN (10:00)
[2018-03-26] MEDS ORDERED: Ondansetron PF 4 MG/2 ML Vial IVP PRN (10:00)
[2018-03-26] MEDS ORDERED: diphenhydrAMINE 50 MG/ML VIAL IVP PRN (10:00)
[2018-03-26] MEDS ORDERED: Zolpidem Tartrate 5 MG TAB PO PRN (10:00)
[2018-03-26] MEDS ORDERED: Naloxone HCl 0.4 mg/ml Vial IVP PRN (10:00)
[2018-03-26] MEDS ORDERED: diphenhydrAMINE 50 MG/ML VIAL IM PRN (10:00)
[2018-03-26] MEDS ORDERED: Naloxone HCl 0.4 mg/ml Vial IV PRN (10:00)
[2018-03-26] MEDS ORDERED: Fentanyl/Bupivacaine 100 ML EPIDURAL SCH (10:00)
[2018-03-26] MEDS ORDERED: traMADol HCl 50 MG TAB PO PRN (10:00)
[2018-03-26] MEDS ORDERED: Promethazine HCl 25 MG SUPP PR PRN (10:00)
[2018-03-26] MEDS ORDERED: Hydrocerin (Eucerin) Cream 120 gm Jar TOP PRN (10:00)
[2018-03-26] MEDS ORDERED: Bupivacaine 0.25% 10 ML VIAL EPIDURAL PRN (10:00)
[2018-03-26] MEDS ORDERED: diphenhydrAMINE 25 MG CAP PO PRN (10:00)
[2018-03-26] MEDS ORDERED: Sodium Bicarb 50 MEQ/50 ML Abboject 8.4% SYRINGE ONE (11:06)
[2018-03-26] MEDS ORDERED: Ondansetron HCl/PF 4 MG/2 ML Vial IVP PRN (11:39)
--- NOTE | 2018-03-26 13:42 | CON ---
DATE OF CONSULTATION: 03/26/2018 REASON FOR CONSULTATION: Evaluate the patient with right empyema. HISTORY OF PRESENT ILLNESS: Mr. Stone is a 77-year-old gentleman with chronic bronchiectasis. He is status post left-sided empyema and decortication in 1976. He underwent aortic valve replacement with bioprosthetic valve in September 2016. He presented to the [facility] in the middle of the night last night with history of cough, not feeling well, and hypotension. He had seen Dr. Bloom yesterday in the office and was given steroids and started on a Z-Aba. In the [facility], they fluid resuscitated him and got a CT of his chest which shows right-sided loculated fluid collection around his lung consistent with empyema. His white blood cell count was 17.4. He was given vancomycin and Zosyn and transferred here for further care. Since being here, he has been afebrile. He has had no further issues other than productive cough - this is a chronic problem with his bronchiectasis, and he has had multiple management strategies provided by Dr. Bloom to control his cough and the production from his bronchiectasis. Dr. Bloom and I have reviewed his films, and agree that he needs a decortication to provide him the best chance at recovery. PAST MEDICAL HISTORY: 1. Bronchiectasis. 2. Aortic stenosis, status post aortic valve replacement. 3. History of atrial fibrillation, status post ablation and left atrial appendage ligation. 4. Gastroesophageal reflux disease. 5. Chronic productive cough. PAST SURGICAL HISTORY: 1. Left thoracotomy for decortication. 2. EVAR. 3. Status post AVR. 4. Back surgery. ALLERGIES: SULFA AND ERYTHROMYCIN. MEDICATIONS: Noted. PHYSICAL EXAMINATION: GENERAL: This is a moderately obese gentleman, resting comfortably in bed. VITAL SIGNS: Height 5 feet 11 inches, weight 198 pounds, temperature 96.9, pulse is 90 and regular, blood pressure 129/62. LUNGS: Diminished breath sounds over the left base, otherwise he has distant crackling breath sounds throughout. HEART: Rhythm is regular. He has good valve snap. ABDOMEN: Soft and nontender. EXTREMITIES: No edema. VASCULAR: Palpable carotid, renal, and femoral pulses bilaterally. ASSESSMENT AND PLAN: I have reviewed the situation with Dr. Bloom, and we agree that he needs a right-sided decortication. I discussed this with him and his . We will plan for surgery as soon as possible. He has been started on vancomycin and Zosyn. We will also add stress dose steroids. Job ID: [id number]
[2018-03-26] MEDS ORDERED: Ketorolac Tromethamine 30 MG/ML VIAL ONE (14:19)
--- NOTE | 2018-03-26 14:35 | RAD ---
SINGLE VIEW OF THE CHEST: Comparison: 03-06-18 History: Status post thoracotomy. FINDINGS: Single view of the chest shows an enlarged cardiomediastinal silhouette. There is a right sided chest tube without evidence of pneumothorax. A small right pleural effusion is present. IMPRESSION: Small right pleural effusion. POS: [facility]
[2018-03-26] MEDS ORDERED: Phenylephrine 10 MG/NS 250 ML 250 ML IVPB PRN (14:38)
[2018-03-26] MEDS ORDERED: Piperacillin/Tazobactam 3.375 GM VIAL ONE (14:45)
[2018-03-26] MEDS ORDERED: Sodium Chloride 0.9% 100 ML ONE (14:47)
--- NOTE | 2018-03-26 15:12 | CON ---
DATE OF CONSULTATION: SUBJECTIVE: Td Stone is a 77-year-old gentleman, who is well known to me. In fact, he was just recently discharged from the hospital, seen in the office yesterday for hemoptysis and low-grade fever. He was given Zithromax and prednisone. When he went home, he said he felt worse, started coughing some blood, had fever, went to the ER, where a CAT scan showed a new right-sided pleural effusion, concerned for empyema. Cardiovascular Surgery had been consulted to go for decortication. The patient has known history of chronic bronchitis, bronchiectasis, and COPD and on several different medications as outlined in the previous note. He has severe limitation of activity. He can barely walk 3 feet without getting markedly short of breath. This morning, he is having some vague right-sided chest pain, which in the past was felt to be musculoskeletal in origin since he had a vibration vest placed. Clearly, his CT scan now shows a new pleural effusion. PAST MEDICAL HISTORY: Otherwise, pertinent for history of aortic stenosis and surgery, abdominal aortic aneurysms and surgery, COPD, coronary artery disease, atrial fibrillation, chronic cough, bronchiectasis. PAST SURGICAL HISTORY: Otherwise, include the aortic valve and the aneurysm surgery. ALLERGIES: SULFA, ERYTHROMYCIN, AND DOXYCYCLINE. MEDICATIONS: His home medicine includes Spiriva, Symbicort, Plaquenil 200 twice a day, low-flow O2, Flomax 0.4, aspirin, gabapentin 300 twice a day. TOBACCO: Former smoker. ALCOHOL: None. REVIEW OF SYSTEMS: Otherwise, 10-point negative. PHYSICAL EXAMINATION: VITAL SIGNS: Saturations are 97% on room air. Temperature 97, pulse 84, blood pressure 133/63. CHEST: Bilateral rhonchi and crackles. CARDIAC: Normal S1 and S2. No gallops or masses. LABORATORY DATA: No lab was done here, but it was done in [place]. Lab will be ordered ordered. IMPRESSION: 1. Right-sided pleural effusion, probably empyema. 2. Chronic bronchitis, bronchiectasis. 3. Arthritis. 4. Benign prostatic hyperplasia. 5. Previous aortic valve surgery. 6. Previous abdominal aortic aneurysm repair. Vancomycin and Zosyn should be adequate. He is on steroids. I will start him on neb treatment and Dulera. Postoperative ICU care. Consultation note, 70 minutes, 50% with direct patient care. Job ID: [id number]
[2018-03-26] MEDS ORDERED: Glycopyrrolate 0.2 MG/ML 5 ML SYRINGE ONE (16:56)
[2018-03-26] MEDS ORDERED: PROPOFOL 200 MG/20 ML VIAL ONE (16:56)
[2018-03-26] MEDS ORDERED: Ondansetron PF 4 MG/2 ML Vial ONE (16:56)
[2018-03-26] MEDS: Piperacillin/Tazobactam 3.375 GM in Sodium Chloride 0.9% 100 ML IVPB SCH ×2 (16:59→21:25)
[2018-03-26] MEDS: Ketorolac Tromethamine 30 MG/ML VIAL IVP SCH ×2 (16:59→17:49)
[2018-03-26] MEDS: Vancomycin HCl 1.5 GM in Sodium Chloride 0.9% 250 ML 300 ML IVPB SCH ×2 (17:00→17:51)
[2018-03-26] MEDS: Sodium Chloride 0.9% 1,000 ML IV SCH (17:22)
--- NOTE | 2018-03-26 17:49 | OP ---
DATE OF PROCEDURE: 03/26/2018 PREOPERATIVE DIAGNOSIS: Right empyema. POSTOPERATIVE DIAGNOSIS: Right empyema. PROCEDURE PERFORMED: Right thoracotomy with total pulmonary decortication. ANESTHESIA: General endotracheal - Dr. Brandon John. ESTIMATED BLOOD LOSS: Less than 100. FINDINGS: 1 L of turbid fluid with multiloculated empyema. DRAINS: A 32-Italian chest tube x2. SPECIMENS: Cultures were taken. DESCRIPTION OF PROCEDURE: After consent was obtained, the patient was brought to the operating room and placed in the supine position on the operating table. Appropriate central line was placed, and general endotracheal anesthesia was induced. The patient was placed in the left lateral decubitus position. Joints were appropriately padded. SCDs were used. The right chest wall was prepped and draped in the usual sterile fashion. Posterolateral thoracotomy incision was made. The chest was entered, and 1 L of fluid was evacuated. The loculations were broken up surrounding the fluid. Parenchymal pleura was debrided off the peel. Chest was copiously irrigated. 32-Italian chest tubes, one right angle and one straight were placed and secured to the skin with silk suture. Lung was reexpanded and filled the chest cavity nicely. The ribs were reapproximated with #1 Vicryl. Wounds were then irrigated and closed in layers, and Dermabond was applied to the skin. The patient tolerated the procedure well, was awakened, extubated, and transferred to the recovery room in stable condition. Needle, sponge, and instrument counts were all reported as correct at the end of the procedure. Job ID: [id number]
[2018-03-26] MEDS: Mometasone/Formoterol 120 PUFF INHALER INH SCH (19:23)
[2018-03-26] MEDS: Gabapentin 300 MG CAP PO SCH (21:25)
[2018-03-27] MEDS: Ketorolac Tromethamine 30 MG/ML VIAL IVP SCH ×4 (01:11→18:27)
[2018-03-27] MEDS: Piperacillin/Tazobactam 3.375 GM in Sodium Chloride 0.9% 100 ML IVPB SCH ×4 (03:30→20:33)
--- NOTE | 2018-03-27 04:08 | HP ---
PRIMARY CARE PROVIDER: Dr. Mark Porras. CHIEF COMPLAINT: Shortness of breath. HISTORY OF PRESENT ILLNESS: This is a 77-year-old male who presented to [facility] and transferred from [facility] after presenting for increased shortness of breath. The patient with a known history of chronic bronchiectasis, chronic bronchitis, and recent admission for acute on chronic hypoxic respiratory failure. The patient was recently admitted to [facility] from 03/06/2018 through 03/08/2018 for bronchitis and acute worsening of his chronic hypoxemic respiratory failure. The patient was placed on Levaquin 500 mg for a 7-day course as well as prednisone tapering regimen. The patient was actually seen by Pulmonology Service on 03/25/2018 and placed on Zithromax and prednisone; however, continued to clinically worsen, presented to the [facility] for evaluation. The patient underwent CT evaluation in the emergency room showing evidence of a large right-sided pleural effusion and concern for empyema. The patient was evaluated in the emergency room, noted with a fever up to 101.7 degrees Fahrenheit with associated tachycardia. The patient was given intravenous normal saline as well as vancomycin and Zosyn and evaluated by the Cardiothoracic Surgery Service. The patient was deemed an appropriate candidate and underwent right thoracotomy with total lung decortication on 03/26/2018. The patient is currently receiving vancomycin and Zosyn as well as general pulmonary supportive measures with DuoNeb, Solu-Medrol, Dulera, and oxygen supplementation. PAST MEDICAL HISTORY: 1. Paroxysmal atrial fibrillation. 2. Gastroesophageal reflux disease. 3. Chronic hypoxic respiratory failure. 4. Benign prostatic hypertrophy. 5. Chronic obstructive pulmonary disease. 6. Remote history of tobacco abuse. 7. Rheumatoid arthritis. 8. Hypertension. PAST SURGICAL HISTORY: 1. Status post aortic valve replacement. 2. Status post inguinal hernia repair. 3. Status post sinus surgery. 4. Status post thoracotomy in for empyema. 5. Status post aortic valve replacement. CURRENT MEDICATIONS: 1. Lipitor 10 mg p.o. at bedtime. 2. Symbicort two puffs inhaled b.i.d. 3. Vitamin D3, 2000 units p.o. daily. 4. Finasteride 5 mg p.o. daily. 5. Gabapentin 300 mg p.o. b.i.d. 6. Plaquenil 200 mg p.o. b.i.d. 7. Protonix 40 mg p.o. daily. 8. Flomax 0.4 mg p.o. at bedtime. 9. Spiriva 18 mcg inhaled daily. 10. Aspirin 325 mg p.o. daily. ALLERGIES: DOXYCYCLINE, ERYTHROMYCIN, SULFA, AND TRIMETHOPRIM. FAMILY HISTORY: No inheritable diseases per patient report. SOCIAL HISTORY: The patient resides in [place], [place]. Retired. . Remote tobacco use, none currently. Alcohol use is 3 to 4 times per week. No illicit drug use. REVIEW OF SYSTEMS: CONSTITUTIONAL: Negative for weight loss or gain, ability to conduct usual activities. SKIN: Negative for rash, itching. EYES: Negative for double vision, pain. ENT/MOUTH: Negative for nose bleeding, neck stiffness, pain, tenderness. CARDIOVASCULAR: Negative for palpitations, dyspnea on exertion, orthopnea. RESPIRATORY: Negative for shortness of breath, wheezing, cough, hemoptysis, fever or night sweats. GASTROINTESTINAL: Negative for poor appetite, abdominal pain, heartburn, nausea, vomiting, constipation, or diarrhea. GENITOURINARY: Negative for urgency, frequency, dysuria, nocturia. MUSCULOSKELETAL: Negative for pain, swelling. NEUROLOGIC/PSYCHIATRIC: Negative for anxiety, depression. ALLERGY/IMMUNOLOGIC: Negative for skin rash, bleeding tendency. Otherwise, negative except as stated per HPI. PHYSICAL EXAMINATION: VITAL SIGNS: Currently, blood pressure 129/54, pulse 74, respiratory rate 19, temperature 97.7 degrees Fahrenheit, O2 saturation 96% on 2L to 3L/min by nasal cannula. GENERAL APPEARANCE: This is a 77-year-old male, alert and oriented x3, pleasant, responsive, in no acute distress. HEENT: Pupils are equal, round, and reactive to light and accommodation. Extraocular muscles are intact. No scleral icterus. No conjunctival injection. Nares patent. OP is clear. Teeth in fair repair. NECK: Supple. No cervical adenopathy. No thyromegaly. No carotid bruits. No JVD appreciated. Cervical spine with full active and passive range of motion. No meningeal signs appreciated. CHEST: Diminished breath sounds in the right base. Few scattered coarse breath sounds in the right lung field. Right-sided chest tubes x2. CARDIOVASCULAR: S1 and S2 with 1/6 to 2/6 systolic ejection murmur in the right upper sternal border. ABDOMEN: Obese, soft, nontender, and nondistended. Bowel sounds are positive in all four quadrants. There is no hepatosplenomegaly. No abdominal bruits. No rebound or guarding appreciated. EXTREMITIES: Warm and dry with fair turgor. No clubbing, cyanosis or asymmetric edema appreciated. Pulses palpable distally at the dorsalis pedis, posterior tibial, and popliteal arteries bilaterally. Capillary refill is less than 2 seconds. NEUROLOGIC: Cranial nerves 2 through 12 are grossly intact. No focal or lateralizing signs appreciated. PERTINENT LAB AND X-RAY FINDINGS: Laboratory data from 03/08/2018, showed basic metabolic profile within normal limits. CBC from 03/26/2018, showed white blood cell count 17.4, hemoglobin 14.6, hematocrit 45, platelet count 358. CT of the chest, abdomen, and pelvis dated 03/26/2018, showed dense right lower lobe consolidation consistent with pneumonia with fluid attenuation within the right lower lobe consistent with empyema. Portable chest x-ray dated 03/26/2018, showed enlarged loculated right pleural fluid collection with adjacent atelectasis, chronic left basilar pleural-parenchymal opacity. Telemetry monitoring shows sinus mechanism with heart rates in the 70s to 80s. ASSESSMENT AND PLAN: 1. Right-sided empyema, status post thoracotomy with total lung decortication. Continue chest tube drainage at the direction of Cardiovascular Surgery Service. Continue empiric IV antibiotic therapy with vancomycin and Zosyn. Await final culture results from pleural fluid. 2. Acute on chronic hypoxemic respiratory failure, improved after decortication procedure. We will continue aggressive pulmonary supportive management. Oxygen supplementation to maintain O2 saturation greater than or equal to 90%. Continue Solu-Medrol 40 mg IV q.6 hours with additional Dulera. 3. Chronic bronchiectasis. We will continue general pulmonary supportive management as outlined previously. Oxygen supplementation. DuoNeb q.4 hours. 4. Deconditioning. PT evaluation for functional assessment. General fall risk precautions. 5. Hypertension. We will resume home antihypertensive regimen and monitor clinical response. 6. Prophylaxis. Sequential compression devices while in bed. Pepcid 20 mg p.o. b.i.d. 7. Code status is full. Surrogate medical decision maker is the patient's spouse. Job ID: [id number]
[2018-03-27] MEDS: Sodium Chloride 0.9% 1,000 ML IV SCH (04:51)
[2018-03-27] MEDS: Vancomycin HCl 1.5 GM in Sodium Chloride 0.9% 250 ML 300 ML IVPB SCH ×2 (04:51→17:29)
[2018-03-27 06:30] LABS: Anion Gap 11 mmol/L (10-20); BUN (Urea Nitrogen) 13 mg/dL (8.4-25.7); Calc. Creatinine Clearance 114 mL/min (70-130); Calcium 8.1 mg/dL (7.8-10.44); Carbon Dioxide 23 mmol/L (23-31); Chloride 110 mmol/L (98-107); Estimated GFR-MDRD Greater than 90; Glucose 129 mg/dL (83-110); Potassium 4.3 mmol/L (3.5-5.1); Sodium 140 mmol/L (136-145)
[2018-03-27 06:44] LABS: Band 12 % (5-11); Hemoglobin 11.6 g/dL (14.0-18.0); Lymphocytes 4 % (21-51); MDiff Complete? YES; Mean Corpuscular HGB CONC 29.9 g/dL (32.0-36.0); Mean Corpuscular Hemoglobin 26.3 pg (27.0-31.0); Mean Corpuscular Volume 87.9 fL (78.0-98.0); Mean Platelet Volume 10.2 fL (7.4-10.4); Monocytes 2 % (0-10); Neutrophil 82 % (42-75); Platelet Count 279 thou/uL (130-400); RBC Distribution Width 13.4 % (11.5-14.5); Red Blood Cell (RBC) Count 4.42 mill/uL (4.70-6.10); White Blood Cell (WBC) Count 23.8 thou/uL (4.8-10.8)
[2018-03-27] MEDS: Mometasone/Formoterol 120 PUFF INHALER INH SCH ×2 (08:01→19:17)
--- NOTE | 2018-03-27 08:28 | RAD ---
PORTABLE SEMIUPRIGHT FRONTAL CHEST RADIOGRAPH: DATE: 03/27/2018. COMPARISON: 03/26/2018. HISTORY: Evaluate chest following thoracotomy, postoperative patient. FINDINGS: There are 2 stable right-sided chest tubes. There is a probable small residual pneumothorax in the r ight costophrenic angle. There is blunting of the left costophrenic angle. There is no focal consol idation on the left. There is focal opacity in the right lung base which may signify volume loss. There is increased density in the right paratracheal region, likely vascular in nature. Midline ster notomy wires are noted. IMPRESSION: Stable postoperative appearance of the chest as detailed above. Followup to resolution of opacity in right base advised. POS: [facility]
[2018-03-27] MEDS: Gabapentin 300 MG CAP PO SCH ×2 (08:50→20:33)
--- NOTE | 2018-03-27 09:59 | PRG ---
DATE OF SERVICE: 03/27/2018 SUBJECTIVE: This morning, he is awake, alert, responsive. Denies any pain or discomfort. OBJECTIVE: VITAL SIGNS: His blood pressure 130/70, his pulse is 80, sats 95 on 2 L, respirations 20. CHEST: Reveals bilateral rhonchi and crackles. CARDIAC: Normal S1 and S2. No gallops no murmers_. LABORATORY DATA: White count 22,000, H and H 11 and 38, and platelet count is 279,000. Lytes are normal. X-ray shows a right-sided chest tube. IMPRESSION: Right-sided empyema with decortication due to extensive bronchiectasis. PLAN: Continue broad-spectrum antibiotics with vancomycin, Zosyn, and steroids. Deescalate once we get all the cultures back. Job ID: [id number] MTDD
[2018-03-27] MEDS: Bupivacaine 10 ML in Sodium Chloride 0.9% 90 ML EPIDURAL SCH (14:20)
[2018-03-27 15:11] LABS: Actual Bicarbonate (HCO3a) 20.2 mEq/L (22-28); Analyzer IN Cardio OR; Base Excess (BEa) -5.2 mEq/L (-2.0 to +3.0); CO2 Tension 39.1 mmHg (35.0-45.0); Calcium, Ionized 1.04 mmol/L (1.12-1.30); Carboxyhemoglobin (COHb) 1.2 gm% (0.0-3.0); Hemoglobin (Hb) 13.1 g/dL (14.0-18.0); O2 Tension (PaO2) 358.9 mmHg (> 70.0); Potassium - ABG Lab 3.85 mmol/L (3.70-5.30); pH, Arterial 7.33 (7.35-7.45)
[2018-03-27 15:14] LABS: Puncture Site ALINE
[2018-03-27 15:30] LABS: Vancomycin, Trough 20.2 ug/mL
[2018-03-27] MEDS: Vancomycin HCl 1.25 GM in Sodium Chloride 0.9% 250 ML 250 ML IVPB SCH (16:38)
[2018-03-27] MEDS: Acetaminophen 500 MG TAB PO PRN (18:32)
--- NOTE | 2018-03-27 18:35 | PDOC.PN ---
- Subjective Encounter Start Date: 03/27/18 Encounter Start Time: 18:30 Subjective: f/u for R-sided empyema s/p decortication with CT placement. Feels -: ok overall and remains on Zosyn/Vancomycin. - Objective MAR Reviewed: Yes Vital Signs & Weight: Vital Signs (12 hours) Temp Pulse Resp Pulse Ox 03/27/18 16:00 97.8 F 03/27/18 13:55 88 22 H 95 03/27/18 12:00 98.3 F 03/27/18 10:20 85 20 94 L 03/27/18 08:01 77 20 95 03/27/18 08:00 98.5 F 94 L Weight Admit Weight 198 lb Weight 198 lb 9.6 oz Most Recent Monitor Data Heart Rate from ECG 99 NIBP 125/70 NIBP BP-Mean 88 Respiration from ECG 20 SpO2 94 I&O: 03/26/18 03/27/18 03/28/18 06:59 06:59 06:59 Intake Total 2105 350 Output Total 900 565 Balance 1205 -215 Result Diagrams: 03/28/18 04:44 03/28/18 04:44 Additional Labs: Microbiology 03/06/18 11:38 Nasopharynx - Pending Influenza Types A,B Direct EIA - Final 03/26/18 10:27 Lung - Right Bacterial Culture - Preliminary 03/06/18 11:40 Urine voided Urine Culture - Preliminary NO GROWTH AT 12 HOURS 03/06/18 11:12 Venous blood - Left Arm Blood Culture - Preliminary Specimen has been received and culture in progress. No Growth to date. 03/06/18 11:05 Venous blood - Right Arm Blood Culture - Preliminary Specimen has been received and culture in progress. No Growth to date. Laboratory Tests 03/06/18 03/06/18 03/07/18 11:05 11:05 04:15 WBC 13.3 H Neutrophils % 76.4 H 76.1 H Lactic Acid 1.6 Vancomycin Trough 03/27/18 15:03 WBC Neutrophils % Lactic Acid Vancomycin Trough 20.2 Radiology Reviewed by me: Yes (PCXR - effusion in R base, CT's x [address]) EKG Reviewed by me: Yes (Tele - SR) Phys Exam - Physical Examination Constitutional: NAD HEENT: PERRLA, sclera anicteric, oral pharynx no lesions Neck: no nodes, no JVD, supple, full ROM diminished in R base, CT's in place Respiratory: no wheezing II/ REGAN, S1, S2 Cardiovascular: RRR, no rub, gallop Gastrointestinal: soft, non-tender, no distention, positive bowel sounds Musculoskeletal: no edema, pulses present Neurological: normal sensation, moves all 4 limbs Psychiatric: A&O x 3 Skin: normal turgor, cap refill <2 seconds Dx/Plan (1) Empyema, right Code(s): J86.9 - PYOTHORAX WITHOUT FISTULA Status: Acute Comment: s/p decortication, continue Levaquin/Zosyn, CT drainage (2) Acute and chronic respiratory failure with hypoxia Code(s): J96.21 - ACUTE AND CHRONIC RESPIRATORY FAILURE WITH HYPOXIA Status: Acute Comment: secondary to chronic bronchiectasis, improving (3) Bronchiectasis Code(s): J47.9 - BRONCHIECTASIS, UNCOMPLICATED Status: Chronic Comment: Continue pulmonary supportive care, Prednisone, Bronchodilators (4) Aortic stenosis Code(s): I35.0 - NONRHEUMATIC AORTIC (VALVE) STENOSIS Status: Chronic Comment: Supportive, no decompensation currently, s/p AVR - Plan continue antibiotics, PT/OT, respiratory therapy, out of bed/ambulate, DVT proph w/SCDs Stable overall -: Continue Bronchodilators/Prednisone -: Continue CT drainage -: Pain control with epidural -: Likely transfer to [facility] * .
[2018-03-27] MEDS: HYDROcodone/Acetaminophen 5/325 mg Tablet PO PRN (20:29)
[2018-03-28] MEDS: Bupivacaine 10 ML in Sodium Chloride 0.9% 90 ML EPIDURAL SCH ×3 (00:38→21:22)
[2018-03-28] MEDS: Ketorolac Tromethamine 30 MG/ML VIAL IVP SCH ×2 (00:45→05:34)
[2018-03-28] MEDS: Piperacillin/Tazobactam 3.375 GM in Sodium Chloride 0.9% 100 ML IVPB SCH ×4 (03:45→21:27)
[2018-03-28] MEDS: Vancomycin HCl 1.25 GM in Sodium Chloride 0.9% 250 ML 250 ML IVPB SCH (05:34)
[2018-03-28 05:36] LABS: #Lymphocytes 0.8 thou/uL (1.20-3.40); #Monocytes 1.2 thou/uL (0.11-0.59); #Neutrophils 17.1 thou/uL (1.40-6.50); %Eosinophils 0.2 % (0.0-10.0); %Lymphocytes 4.1 % (21.0-51.0); %Monocytes 6.3 % (0.0-10.0); %Neutrophils 89.4 % (42.0-75.0); Hemoglobin 11.2 g/dL (14.0-18.0); Mean Corpuscular HGB CONC 31.9 g/dL (32.0-36.0); Mean Corpuscular Volume 87.9 fL (78.0-98.0); Mean Platelet Volume 9.9 fL (7.4-10.4); Platelet Count 287 thou/uL (130-400); RBC Distribution Width 13.3 % (11.5-14.5); Red Blood Cell (RBC) Count 3.98 mill/uL (4.70-6.10); White Blood Cell (WBC) Count 19.1 thou/uL (4.8-10.8)
[2018-03-28 05:54] LABS: Anion Gap 11 mmol/L (10-20); BUN (Urea Nitrogen) 18 mg/dL (8.4-25.7); Calc. Creatinine Clearance 91 mL/min (70-130); Calcium 8.3 mg/dL (7.8-10.44); Carbon Dioxide 23 mmol/L (23-31); Chloride 110 mmol/L (98-107); Estimated GFR-MDRD 87; Glucose 143 mg/dL (83-110); Potassium 3.8 mmol/L (3.5-5.1); Sodium 140 mmol/L (136-145)
[2018-03-28] MEDS: Gabapentin 300 MG CAP PO SCH ×3 (08:23→21:28)
[2018-03-28] MEDS: Finasteride 5 MG TAB PO SCH (09:04)
--- NOTE | 2018-03-28 09:09 | RAD ---
SEMI UPRIGHT PORTABLE CHEST ONE VIEW: History: 77-year-old male with history of respiratory insufficiency. Follow up right chest tube and right side d pneumothorax. FINDINGS/IMPRESSION: Post underlying sternotomy. Right chest tubes in place. Small right sided pneumothorax, little change d from the prior study. Left costophrenic angle blunting, stable. Pleural and parenchymal opacity keke nges in the right base, possibly some right lower lobe atelectasis and/or pneumonia or pneumonitis. L ittle change in the appearance of the chest from 12-6-18. Continued short term follow up. POS: [facility]
[2018-03-28] MEDS: Mometasone/Formoterol 120 PUFF INHALER INH SCH ×2 (09:27→19:22)
[2018-03-28] MEDS: Hydroxychloroquine Sulfate 200 MG TAB PO SCH ×2 (09:36→21:29)
--- NOTE | 2018-03-28 09:59 | PRG ---
DATE OF SERVICE: 03/28/2018 SUBJECTIVE: A 77-year-old gentleman this morning having some right-sided chest pain. X-ray shows a small loculated pneumothorax on the right base, otherwise no new infiltrates. OBJECTIVE: VITAL SIGNS: Blood pressure is 137/73, oxygen saturation 93%, temperature is 98, and respirations 18. CHEST: Decreased breath sounds and wheezing. CARDIAC: Normal S1 and S2. No gallop or murmurs. LABORATORY DATA: His lytes are normal. His white count is 19,000. IMPRESSION: 1. Status post decortication, empyema, parapneumonic effusion. 2. Baseline severe chronic obstructive pulmonary disease, severe bilateral bronchiectasis. PLAN: Discontinue vancomycin. Continue Zosyn, prednisone, and Levaquin. Continue home medication. We will follow. Job ID: [id number]
[2018-03-28] MEDS: Acetaminophen 500 MG TAB PO PRN (14:19)
--- NOTE | 2018-03-28 16:25 | PDOC.PN ---
- Subjective Encounter Start Date: 03/28/18 Encounter Start Time: 16:25 Subjective: f/u for R-empyema s/p decortication on current Levaquin/Prednisone -: Zosyn. Continues with chest tube drainage. Feels ok overall. - Objective MAR Reviewed: Yes Vital Signs & Weight: Vital Signs (12 hours) Temp Pulse Resp BP Pulse Ox 03/28/18 15:19 97.5 F L 90 18 140/71 95 03/28/18 14:51 84 20 94 L 03/28/18 12:08 109 H 20 128/60 94 L 03/28/18 11:14 97.8 F 03/28/18 09:27 90 19 93 L 03/28/18 08:56 94 L 03/28/18 08:54 76 16 94 L 03/28/18 08:00 98.3 F 03/28/18 07:35 93 L 03/28/18 07:00 98.3 F Weight Admit Weight 198 lb Weight 198 lb 9.6 oz Most Recent Monitor Data Heart Rate from ECG 85 NIBP 137/64 NIBP BP-Mean 94 Respiration from ECG 20 SpO2 96 I&O: 03/27/18 03/28/18 03/29/18 06:59 06:59 06:59 Intake Total 2105 1250 820 Output Total 900 1340 260 Balance 1205 -90 560 Result Diagrams: 03/28/18 04:44 03/28/18 04:44 Additional Labs: Microbiology 03/06/18 11:38 Nasopharynx - Pending Influenza Types A,B Direct EIA - Final 03/26/18 10:27 Lung - Right Bacterial Culture - Preliminary 03/26/18 10:27 Lung - Right Anaerobic Culture - Preliminary NO ANAEROBES ISOLATED IN 48 HOURS 03/26/18 10:27 Lung - Right Bacterial Culture - Preliminary 03/06/18 11:40 Urine voided Urine Culture - Preliminary NO GROWTH AT 12 HOURS 03/06/18 11:12 Venous blood - Left Arm Blood Culture - Preliminary Specimen has been received and culture in progress. No Growth to date. 03/06/18 11:05 Venous blood - Right Arm Blood Culture - Preliminary Specimen has been received and culture in progress. No Growth to date. Laboratory Tests 03/06/18 03/06/18 03/07/18 11:05 11:05 04:15 WBC 13.3 H Neutrophils % 76.4 H 76.1 H Lactic Acid 1.6 Vancomycin Trough 03/27/18 03/27/18 05:00 15:03 WBC 23.8 H Neutrophils % Lactic Acid Vancomycin Trough 20.2 Radiology Reviewed by me: Yes (PCXR - R-sided CT's in place, small PTX and basilar atelectasis) EKG Reviewed by me: Yes (Tele - SR) Phys Exam - Physical Examination Constitutional: NAD HEENT: PERRLA, sclera anicteric, oral pharynx no lesions Neck: no nodes, no JVD, supple, full ROM diminished in R base, CT's in place Respiratory: no wheezing, no rhonchi S1, S2 Cardiovascular: RRR, no rub, gallop Gastrointestinal: soft, non-tender, no distention, positive bowel sounds Musculoskeletal: no edema, pulses present Neurological: normal sensation, moves all 4 limbs Psychiatric: A&O x 3 Skin: normal turgor, cap refill <2 seconds Deviation from normal: [place] with clear urine Dx/Plan (1) Empyema, right Code(s): J86.9 - PYOTHORAX WITHOUT FISTULA Status: Acute Comment: s/p decortication, continue Levaquin/Zosyn, CT drainage (2) Acute and chronic respiratory failure with hypoxia Code(s): J96.21 - ACUTE AND CHRONIC RESPIRATORY FAILURE WITH HYPOXIA Status: Acute Comment: secondary to chronic bronchiectasis, improving (3) Bronchiectasis Code(s): J47.9 - BRONCHIECTASIS, UNCOMPLICATED Status: Chronic Comment: Continue pulmonary supportive care, Prednisone, Bronchodilators (4) Aortic stenosis Code(s): I35.0 - NONRHEUMATIC AORTIC (VALVE) STENOSIS Status: Chronic Comment: Supportive, no decompensation currently, s/p AVR - Plan continue antibiotics, PT/OT, geriatric social work professor, respiratory therapy, out of bed/ ambulate, DVT proph w/SCDs Stable overall -: Continue Levaquin/Zosyn -: Continue Prednisone/Duonebs -: OOB/ambulate -: AM lab: BMP, CBC * .
[2018-03-28] MEDS: Tamsulosin HCl 0.4 MG CAP PO SCH (21:28)
[2018-03-28] MEDS: HYDROcodone/Acetaminophen 5/325 mg Tablet PO PRN (21:28)
[2018-03-29] MEDS: HYDROcodone/Acetaminophen 5/325 mg Tablet PO PRN ×4 (01:32→21:14)
[2018-03-29] MEDS: Piperacillin/Tazobactam 3.375 GM in Sodium Chloride 0.9% 100 ML IVPB SCH ×4 (03:09→21:11)
[2018-03-29] MEDS: traMADol HCl 50 MG TAB PO PRN (03:16)
[2018-03-29 06:26] LABS: #Lymphocytes 1.6 thou/uL (1.20-3.40); #Monocytes 0.9 thou/uL (0.11-0.59); #Neutrophils 9.7 thou/uL (1.40-6.50); %Basophils 0.4 % (0.0-1.0); %Eosinophils 0.1 % (0.0-10.0); %Lymphocytes 12.9 % (21.0-51.0); %Monocytes 7.3 % (0.0-10.0); %Neutrophils 79.3 % (42.0-75.0); Hemoglobin 10.5 g/dL (14.0-18.0); Mean Corpuscular HGB CONC 31.5 g/dL (32.0-36.0); Mean Corpuscular Hemoglobin 27.6 pg (27.0-31.0); Mean Corpuscular Volume 87.4 fL (78.0-98.0); Mean Platelet Volume 9.5 fL (7.4-10.4); Platelet Count 271 thou/uL (130-400); RBC Distribution Width 13.2 % (11.5-14.5); Red Blood Cell (RBC) Count 3.81 mill/uL (4.70-6.10); White Blood Cell (WBC) Count 12.2 thou/uL (4.8-10.8)
[2018-03-29 06:36] LABS: Anion Gap 8 mmol/L (10-20); BUN (Urea Nitrogen) 15 mg/dL (8.4-25.7); Calc. Creatinine Clearance 106 mL/min (70-130); Carbon Dioxide 27 mmol/L (23-31); Chloride 111 mmol/L (98-107); Estimated GFR-MDRD Greater than 90; Glucose 89 mg/dL (83-110); Potassium 3.7 mmol/L (3.5-5.1); Sodium 142 mmol/L (136-145)
[2018-03-29] MEDS: Bupivacaine 10 ML in Sodium Chloride 0.9% 90 ML EPIDURAL SCH ×2 (07:28→17:00)
[2018-03-29] MEDS: Finasteride 5 MG TAB PO SCH (08:34)
[2018-03-29] MEDS: Gabapentin 300 MG CAP PO SCH ×2 (08:34→21:13)
[2018-03-29] MEDS: Hydroxychloroquine Sulfate 200 MG TAB PO SCH ×2 (08:35→21:13)
[2018-03-29] MEDS: predniSONE 20 MG TAB PO SCH (08:35)
[2018-03-29] MEDS ORDERED: Non-Formulary Item 1 EACH (Tiotropium Bromide [Spiriva Respimat] 2 INH) IH SCH (09:00)
[2018-03-29] MEDS: Mometasone/Formoterol 120 PUFF INHALER INH SCH ×2 (09:08→19:06)
[2018-03-29] MEDS ORDERED: Furosemide 40 MG/4 ML VIAL SLOW IVP SCH (10:45)
--- NOTE | 2018-03-29 11:15 | PDOC.PN ---
- Subjective Encounter Start Date: 03/29/18 Encounter Start Time: 11:15 Subjective: f/u for R empyema, parapneumonic effusion and bronchiectasis with -: CT x 2. Feels ok overall, anxious to go home. Receiving Levaquin and -: Zosyn currently. - Objective MAR Reviewed: Yes Vital Signs & Weight: Vital Signs (12 hours) Temp Pulse Resp BP Pulse Ox 03/29/18 10:59 98.1 F 83 18 140/73 95 03/29/18 09:08 86 16 03/29/18 08:58 93 L 03/29/18 08:55 86 16 03/29/18 07:35 97.9 F 79 18 156/76 H 94 L 03/29/18 04:00 97.8 F 79 14 159/77 H 94 L Weight Admit Weight 198 lb Weight 203 lb 2 oz Most Recent Monitor Data Heart Rate from ECG 85 NIBP 137/64 NIBP BP-Mean 94 Respiration from ECG 20 SpO2 96 I&O: 03/28/18 03/29/18 03/30/18 06:59 06:59 06:59 Intake Total 1250 1300 1200 Output Total 4428 699 7301 Balance -90 550 195 Result Diagrams: 03/29/18 05:38 03/29/18 05:38 Additional Labs: Microbiology 03/06/18 11:38 Nasopharynx - Pending Influenza Types A,B Direct EIA - Final 03/26/18 10:27 Lung - Right Bacterial Culture - Preliminary 03/26/18 10:27 Lung - Right Anaerobic Culture - Preliminary NO ANAEROBES ISOLATED IN 48 HOURS 03/26/18 10:27 Lung - Right Bacterial Culture - Preliminary 03/06/18 11:40 Urine voided Urine Culture - Preliminary NO GROWTH AT 12 HOURS 03/06/18 11:12 Venous blood - Left Arm Blood Culture - Preliminary Specimen has been received and culture in progress. No Growth to date. 03/06/18 11:05 Venous blood - Right Arm Blood Culture - Preliminary Specimen has been received and culture in progress. No Growth to date. Laboratory Tests 03/06/18 03/06/18 03/07/18 11:05 11:05 04:15 WBC 13.3 H Neutrophils % 76.4 H 76.1 H Lactic Acid 1.6 Vancomycin Trough 03/27/18 03/27/18 05:00 15:03 WBC 23.8 H Neutrophils % Lactic Acid Vancomycin Trough 20.2 EKG Reviewed by me: Yes (Tele - SR) Phys Exam - Physical Examination Constitutional: NAD HEENT: PERRLA, sclera anicteric, oral pharynx no lesions Neck: no nodes, no JVD, supple, full ROM diminished in R base, CT x [address] Respiratory: no wheezing S1, S2 Cardiovascular: RRR, no significant murmur, no rub, gallop Gastrointestinal: soft, non-tender, no distention, positive bowel sounds Musculoskeletal: no edema, pulses present Neurological: normal sensation, moves all 4 limbs Psychiatric: A&O x 3 Skin: normal turgor, cap refill <2 seconds Dx/Plan (1) Empyema, right Code(s): J86.9 - PYOTHORAX WITHOUT FISTULA Status: Acute Comment: s/p decortication, continue Levaquin/Zosyn, CT drainage, Lasix (2) Acute and chronic respiratory failure with hypoxia Code(s): J96.21 - ACUTE AND CHRONIC RESPIRATORY FAILURE WITH HYPOXIA Status: Acute Comment: secondary to chronic bronchiectasis, improving (3) Bronchiectasis Code(s): J47.9 - BRONCHIECTASIS, UNCOMPLICATED Status: Chronic Comment: Continue pulmonary supportive care, Prednisone, Bronchodilators (4) Aortic stenosis Code(s): I35.0 - NONRHEUMATIC AORTIC (VALVE) STENOSIS Status: Chronic Comment: Supportive, no decompensation currently, s/p AVR - Plan continue antibiotics, PT/OT, public health social worker, respiratory therapy, out of bed/ ambulate, DVT proph w/SCDs Stable overall -: Resume ASA 325mg daily -: Resume probiotics -: Continue to monitor output of CT's -: AM lab: BMP, CBC * .
[2018-03-29] MEDS: Atorvastatin Calcium 10 MG TAB PO SCH (21:12)
[2018-03-29] MEDS: Tamsulosin HCl 0.4 MG CAP PO SCH (21:13)
[2018-03-29] MEDS: Simethicone Chewable 80 MG TAB PO SCH (22:07)
--- NOTE | 2018-03-29 22:43 | PRG ---
DATE OF SERVICE: 03/29/2018 SERVICE: Pulmonary Medicine. INTERVAL HISTORY: The patient is doing really well from respiratory standpoint. He is breathing comfortably. He has a little bit of appropriate chest wall pain. He is not coughing or bringing up any sputum at this point; he did yesterday. Overall, he had a fairly decent day today. PHYSICAL EXAMINATION: VITAL SIGNS: Afebrile, pulse 80, blood pressure 168/81, respirations 18, and saturation 95% on 2 L nasal cannula. GENERAL: The patient is awake, alert, in no apparent distress. LUNGS: Excellent air entry on the left. There is decreased air entry on the right. No prolonged expiratory phase or wheezing IS appreciated. HEART: Normal rate, regular. ABDOMEN: Distended. Bowel sounds are hypoactive. No rebound or guarding is present. MUSCULOSKELETAL: No cyanosis or clubbing. No pitting in the bilateral lower extremities. NEUROLOGIC: Grossly nonfocal. LABORATORY DATA: WBC 12.2, hemoglobin 10.5, platelets 271,000. Basic metabolic profile is essentially unremarkable. Vancomycin trough is 20.2. IMAGING DATA: Chest x-ray demonstrates right-sided thoracostomy drains are in place x2. Left costophrenic angle blunting is noted. Overall, the chest is stable. Possible collapse of the right middle lobe. ASSESSMENT: 1. Acute hypoxic respiratory failure. 2. Chronic obstructive pulmonary disease. 3. Community-acquired pneumonia. 4. Empyema, status post decortication, postop day 3. DISCUSSION AND PLAN: We will continue our supportive care and antibiotics. He is on frequent nebulized medications. Home inhalers will be continued. I will schedule couple doses of Gas-X to see if we can decrease his abdominal distention. I will provide him with a laboratory holiday in the morning as these things are moving in the right direction. Job ID: [id number]
[2018-03-30] MEDS: Bupivacaine 10 ML in Sodium Chloride 0.9% 90 ML EPIDURAL SCH ×3 (02:58→22:08)
[2018-03-30] MEDS: Piperacillin/Tazobactam 3.375 GM in Sodium Chloride 0.9% 100 ML IVPB SCH ×2 (02:58→07:46)
[2018-03-30] MEDS: HYDROcodone/Acetaminophen 5/325 mg Tablet PO PRN ×2 (03:09→19:45)
[2018-03-30] MEDS: traMADol HCl 50 MG TAB PO PRN (05:50)
[2018-03-30] MEDS: Floranex Packet PO SCH (07:46)
[2018-03-30] MEDS: Gabapentin 300 MG CAP PO SCH ×2 (07:47→19:46)
[2018-03-30] MEDS: predniSONE 20 MG TAB PO SCH (07:47)
[2018-03-30] MEDS: Hydroxychloroquine Sulfate 200 MG TAB PO SCH ×2 (07:47→19:46)
[2018-03-30] MEDS: Simethicone Chewable 80 MG TAB PO SCH ×3 (07:47→19:46)
[2018-03-30] MEDS: Mometasone/Formoterol 120 PUFF INHALER INH SCH ×2 (07:47→19:18)
[2018-03-30] MEDS: Finasteride 5 MG TAB PO SCH (07:47)
[2018-03-30] MEDS: Aspirin 325 MG TAB PO SCH (07:47)
--- NOTE | 2018-03-30 08:03 | RAD ---
PORTABLE CHEST: DATE: 03/30/2018. PROVIDED CLINICAL HISTORY: Chest tubes. FINDINGS: Comparison 03/28/2018. Cardiac and mediastinal silhouette is unchanged in appearance. Median sternot berhane changes are again noted. Right-sided chest tubes are again noted in similar positions. Loculate d right-sided basilar pneumothorax is redemonstrated. Blunting of the left costophrenic angles again noted. IMPRESSION: Stable radiographic appearance of the chest. POS: [facility]
[2018-03-30] MEDS ORDERED: Furosemide 40 MG/4 ML VIAL SLOW IVP SCH (09:30)
[2018-03-30] MEDS: Acetaminophen 500 MG TAB PO PRN (10:45)
--- NOTE | 2018-03-30 15:33 | PDOC.PN ---
- Subjective Encounter Start Date: 03/30/18 Encounter Start Time: 15:15 Subjective: f/u for R empyema and parapneumonic effusion with CT's x 2. Feels ok -: overall but stiff from being in bed. - Objective MAR Reviewed: Yes Vital Signs & Weight: Vital Signs (12 hours) Temp Pulse Resp BP Pulse Ox 03/30/18 15:04 87 16 03/30/18 11:00 83 16 03/30/18 10:43 98.1 F 89 16 141/67 H 94 L 03/30/18 07:47 73 16 03/30/18 07:40 98 03/30/18 07:38 73 16 03/30/18 07:00 98.1 F 85 16 171/79 H 94 L 03/30/18 03:58 97.8 F 77 20 182/83 H 94 L Weight Admit Weight 198 lb Weight 196 lb 7 oz Most Recent Monitor Data Heart Rate from ECG 85 NIBP 137/64 NIBP BP-Mean 94 Respiration from ECG 20 SpO2 96 I&O: 03/29/18 03/30/18 03/31/18 06:59 06:59 06:59 Intake Total 1300 2980 Output Total 750 5180 70 Balance 550 -2200 -70 Result Diagrams: 03/29/18 05:38 03/29/18 05:38 Additional Labs: Microbiology 03/06/18 11:38 Nasopharynx - Pending Influenza Types A,B Direct EIA - Final 03/26/18 10:27 Lung - Right Bacterial Culture - Preliminary 03/26/18 10:27 Lung - Right Anaerobic Culture - Preliminary NO ANAEROBES ISOLATED IN 48 HOURS 03/26/18 10:27 Lung - Right Bacterial Culture - Preliminary 03/06/18 11:40 Urine voided Urine Culture - Preliminary NO GROWTH AT 12 HOURS 03/06/18 11:12 Venous blood - Left Arm Blood Culture - Preliminary Specimen has been received and culture in progress. No Growth to date. 03/06/18 11:05 Venous blood - Right Arm Blood Culture - Preliminary Specimen has been received and culture in progress. No Growth to date. Laboratory Tests 03/06/18 03/06/18 03/07/18 11:05 11:05 04:15 WBC 13.3 H Neutrophils % 76.4 H 76.1 H Lactic Acid 1.6 Vancomycin Trough 03/27/18 03/27/18 05:00 15:03 WBC 23.8 H Neutrophils % Lactic Acid Vancomycin Trough 20.2 Radiology Reviewed by me: Yes (PCXR - R-sided CT's x 2, loculated ptx) EKG Reviewed by me: Yes (Tele - SR) Phys Exam - Physical Examination Constitutional: NAD HEENT: PERRLA, sclera anicteric, oral pharynx no lesions Neck: no nodes, no JVD, supple, full ROM diminished in R base, CT's in place S1, S2 Cardiovascular: RRR, no significant murmur, no rub, gallop Gastrointestinal: soft, non-tender, no distention, positive bowel sounds Musculoskeletal: no edema, pulses present Neurological: normal sensation, moves all 4 limbs Psychiatric: A&O x 3 Skin: normal turgor, cap refill <2 seconds Dx/Plan (1) Empyema, right Code(s): J86.9 - PYOTHORAX WITHOUT FISTULA Status: Acute Comment: s/p decortication, continue Levaquin, CT drainage, Lasix, likely CT removal (2) Acute and chronic respiratory failure with hypoxia Code(s): J96.21 - ACUTE AND CHRONIC RESPIRATORY FAILURE WITH HYPOXIA Status: Acute Comment: secondary to chronic bronchiectasis, improving (3) Bronchiectasis Code(s): J47.9 - BRONCHIECTASIS, UNCOMPLICATED Status: Chronic Comment: Continue pulmonary supportive care, Prednisone, Bronchodilators (4) Aortic stenosis Code(s): I35.0 - NONRHEUMATIC AORTIC (VALVE) STENOSIS Status: Chronic Comment: Supportive, no decompensation currently, s/p AVR - Plan plan discussed w/ family, continue antibiotics, out of bed/ambulate, DVT proph w /SCDs Stable currently -: Continue Levaquin 500mg daily -: Continue Prednisone -: OOB/ambulate -: AM lab: CBC * .
[2018-03-30] MEDS: Tamsulosin HCl 0.4 MG CAP PO SCH (19:46)
[2018-03-30] MEDS: Atorvastatin Calcium 10 MG TAB PO SCH (19:46)
--- NOTE | 2018-03-30 19:55 | PRG ---
DATE OF SERVICE: 03/30/2018 SERVICE: Pulmonary Medicine. INTERVAL HISTORY: The patient is having a challenging time getting consolidated rest. Outside of that, there has been no interval changes to his condition. He has some chest wall discomfort. He is coughing a little bit of phlegm, but it seems to be clearing out into yellow color, which was previously green. He denies any fevers or chills. There were no overnight events. OBJECTIVE: VITAL SIGNS: Afebrile, pulse 92, blood pressure 135/69, respirations 18, and saturation 95% on 2 L nasal cannula. GENERAL: The patient is awake and alert, in no apparent distress. LUNGS: Excellent air entry. There is no prolonged expiratory phase, wheezing, or crackles. HEART: Normal rate and regular. ABDOMEN: Soft, nontender, and nondistended. Bowel sounds are positive. MUSCULOSKELETAL: No cyanosis or clubbing. There is no pitting in the bilateral lower extremities. NEUROLOGIC: Grossly nonfocal. IMAGING: Chest x-ray demonstrates stable radiographic appearance of the chest. There are thoracostomy tubes on the right x2. There is right basilar parenchymal opacification present. No significant pneumothorax is identified. There is blunting of the left costophrenic angle, possibly consistent with an effusion there. ASSESSMENT: 1. Acute hypoxic respiratory failure. 2. Chronic obstructive pulmonary disease without current exacerbation. 3. Community-acquired pneumonia. 4. Empyema, status post decortication, postop day #4. DISCUSSION AND PLAN: We will continue supportive care including antibiotics, steroids, and nebulized medications. Pulmonary Critical Care will continue to follow along. Dr. Bloom will resume coverage in the morning. Job ID: [id number]
[2018-03-31] MEDS: HYDROcodone/Acetaminophen 5/325 mg Tablet PO PRN ×3 (01:53→20:04)
[2018-03-31] MEDS: traMADol HCl 50 MG TAB PO PRN (05:23)
[2018-03-31 06:07] LABS: Band 1 % (5-11); Eosinophils 6 % (0-10); Hemoglobin 11.8 g/dL (14.0-18.0); Lymphocytes 11 % (21-51); MDiff Complete? YES; Mean Corpuscular Volume 87.3 fL (78.0-98.0); Monocytes 11 % (0-10); Neutrophil 71 % (42-75); Platelet Count 298 thou/uL (130-400); RBC Distribution Width 13.4 % (11.5-14.5); Red Blood Cell (RBC) Count 4.21 mill/uL (4.70-6.10)
[2018-03-31] MEDS: Mometasone/Formoterol 120 PUFF INHALER INH SCH ×2 (07:01→18:52)
[2018-03-31] MEDS ORDERED: Furosemide 40 MG/4 ML VIAL SLOW IVP SCH (07:15)
[2018-03-31] MEDS: Aspirin 325 MG TAB PO SCH (09:04)
[2018-03-31] MEDS: predniSONE 20 MG TAB PO SCH (09:04)
[2018-03-31] MEDS: Finasteride 5 MG TAB PO SCH (09:04)
[2018-03-31] MEDS: Hydroxychloroquine Sulfate 200 MG TAB PO SCH ×2 (09:05→20:04)
[2018-03-31] MEDS: Gabapentin 300 MG CAP PO SCH ×2 (09:05→20:04)
[2018-03-31] MEDS: Floranex Packet PO SCH (09:05)
--- NOTE | 2018-03-31 11:09 | PRG ---
DATE OF SERVICE: 03/31/2018 SUBJECTIVE: This morning, his chest tube was removed. He is doing better. He is still weak though. He is still coughing. OBJECTIVE: VITAL SIGNS: Sats are 95% on 2 L, respiratory rate 18, pulse 95, temperature 98, and blood pressure 157/78. CHEST: Bilateral wheezing. CARDIAC: Normal S1 and S2. No gallops. ABDOMEN: No masses. DIAGNOSTIC DATA: White count 85607. His lytes are normal. IMPRESSION: 1. Status post decortication for loculated pleural effusion. 2. Severe chronic obstructive pulmonary disease and acute bronchiectasis. PLAN: Continue PT supportive care. Baseline chest x-ray appears stable. He will be discharged home in the next 24 to 48 hours. Job ID: [id number]
--- NOTE | 2018-03-31 13:46 | PDOC.PN ---
- Subjective Encounter Start Date: 03/31/18 Encounter Start Time: 13:45 Subjective: f/u for R empyema s/p removal of CT's. States feeling ok and -: ready to get up and move around. - Objective MAR Reviewed: Yes Vital Signs & Weight: Vital Signs (12 hours) Temp Pulse Resp BP Pulse Ox 03/31/18 12:11 95 20 148/77 H 94 L 03/31/18 10:22 92 18 95 03/31/18 07:51 98.2 F 90 22 H 157/78 H 93 L 03/31/18 07:04 93 L 03/31/18 07:02 84 16 93 L 03/31/18 07:01 84 16 93 L 03/31/18 02:56 97.8 F 79 16 163/76 H 96 Weight Admit Weight 198 lb Weight 193 lb 3 oz Most Recent Monitor Data Heart Rate from ECG 85 NIBP 137/64 NIBP BP-Mean 94 Respiration from ECG 20 SpO2 96 I&O: 03/30/18 03/31/18 04/01/18 06:59 06:59 06:59 Intake Total 2980 1680 Output Total 5180 3515 300 Balance -2200 -1835 -300 Result Diagrams: 03/31/18 05:29 03/29/18 05:38 Additional Labs: Microbiology 03/06/18 11:38 Nasopharynx - Pending Influenza Types A,B Direct EIA - Final 03/26/18 10:27 Lung - Right Bacterial Culture - Preliminary 03/26/18 10:27 Lung - Right Anaerobic Culture - Preliminary NO ANAEROBES ISOLATED IN 48 HOURS 03/26/18 10:27 Lung - Right Bacterial Culture - Preliminary 03/06/18 11:40 Urine voided Urine Culture - Preliminary NO GROWTH AT 12 HOURS 03/06/18 11:12 Venous blood - Left Arm Blood Culture - Preliminary Specimen has been received and culture in progress. No Growth to date. 03/06/18 11:05 Venous blood - Right Arm Blood Culture - Preliminary Specimen has been received and culture in progress. No Growth to date. Laboratory Tests 03/06/18 03/06/18 03/07/18 11:05 11:05 04:15 WBC 13.3 H Neutrophils % 76.4 H 76.1 H Lactic Acid 1.6 Vancomycin Trough 12/06/18 12/06/18 05:00 15:03 WBC 23.8 H Neutrophils % Lactic Acid Vancomycin Trough 20.2 EKG Reviewed by me: Yes (Tele - SR) Phys Exam - Physical Examination Constitutional: NAD HEENT: PERRLA, sclera anicteric, oral pharynx no lesions Neck: no nodes, no JVD, supple, full ROM coarse sounds in R field Respiratory: no wheezing S1, S2 Cardiovascular: RRR, no significant murmur, no rub, gallop Gastrointestinal: soft, non-tender, no distention, positive bowel sounds Musculoskeletal: no edema, pulses present Neurological: normal sensation, moves all 4 limbs Psychiatric: A&O x 3 Skin: normal turgor, cap refill <2 seconds Dx/Plan (1) Empyema, right Code(s): J86.9 - PYOTHORAX WITHOUT FISTULA Status: Acute Comment: s/p decortication, continue Levaquin, CT's removed (2) Acute and chronic respiratory failure with hypoxia Code(s): J96.21 - ACUTE AND CHRONIC RESPIRATORY FAILURE WITH HYPOXIA Status: Acute Comment: secondary to chronic bronchiectasis, improving (3) Bronchiectasis Code(s): J47.9 - BRONCHIECTASIS, UNCOMPLICATED Status: Chronic Comment: Continue pulmonary supportive care, Prednisone, Bronchodilators (4) Aortic stenosis Code(s): I35.0 - NONRHEUMATIC AORTIC (VALVE) STENOSIS Status: Chronic Comment: Supportive, no decompensation currently, s/p AVR - Plan plan discussed w/ family, continue antibiotics, PT/OT, social media job titles, out of bed/ambulate, DVT proph w/SCDs Stable overall -: CT's removed today -: OOB to chair with assist -: Continue Levaquin 500mg daily -: PT evaluation for ambulation * Likely home in 24h
--- NOTE | 2018-03-31 16:42 | RAD ---
FRONTAL RADIOGRAPH OF THE CHEST: DATE: 03/31/2018. COMPARISON: 03/30/2018. HISTORY: Pleural effusion. FINDINGS: There is increased density in the right paratracheal region which could signify vascular prominence. There is blunting of the left costophrenic angle, evidence of a stable small left pleural effusion. Right chest tube has been removed when compared to the prior examination. There is hazy increased interstitial density in the right perihilar region and the right lung base wi th mild airspace disease and/or volume loss involving the right lower lobe. There is a probable tiny loculated pneumothorax in the right costophrenic angle, as seen on the 04/09/2018 examination. IMPRESSION: Bibasilar pleural and parenchymal opacity as detailed above, not significantly changed when compared to 03/30/2018 examination. The right chest tube has been removed. POS: [facility]
[2018-03-31] MEDS: Tamsulosin HCl 0.4 MG CAP PO SCH (20:05)
[2018-03-31] MEDS: Atorvastatin Calcium 10 MG TAB PO SCH (20:05)
[2018-04-01] MEDS: traMADol HCl 50 MG TAB PO PRN (05:12)
[2018-04-01] MEDS: Mometasone/Formoterol 120 PUFF INHALER INH SCH (07:14)
[2018-04-01 07:46] VITALS: TEMP 98.4
[2018-04-01] MEDS: Floranex Packet PO SCH (09:24)
[2018-04-01] MEDS: Hydroxychloroquine Sulfate 200 MG TAB PO SCH (09:25)
[2018-04-01] MEDS: Aspirin 325 MG TAB PO SCH (09:25)
[2018-04-01] MEDS: Gabapentin 300 MG CAP PO SCH (09:25)
[2018-04-01] MEDS: Finasteride 5 MG TAB PO SCH (09:25)
[2018-04-01] MEDS: predniSONE 20 MG TAB PO SCH (09:25)
--- NOTE | 2018-04-01 11:09 | RAD ---
CHEST TWO VIEWS: INDICATIONS: Effusion. COMPARISON: Previous day. FINDINGS: There is bibasilar density, indicating pleural fluid with adjacent atelectasis and/or pneumonia. The re is interstitial prominence of hyperinflated lungs bilaterally. The cardiomediastinal silhouette i s similar in appearance. There is presumed fissural fluid along the right minor fissure. IMPRESSION: Bilateral pleural fluid with adjacent atelectasis and/or pneumonia. Recommend continued followup. POS: [facility]
--- NOTE | 2018-04-01 11:22 | PRG ---
DATE OF SERVICE: 04/01/2018 SUBJECTIVE: This morning, he is awake, alert, responsive, in no distress. He walked about 150 feet. OBJECTIVE: VITAL SIGNS: Sats are 94% on 2 L, temperature 98, pulse 92, and blood pressure 159/77. CHEST: Reveals extensive rhonchi and crackles in right lung. CARDIAC: Normal S1 and S2. No gallops. ABDOMEN: No masses. IMPRESSION: 1. Status post decortication for loculated empyema. 2. Chronic bilateral changes. PLAN: Baseline x-ray being ordered. He will be discharged home any time. Job ID: [id number]
[2018-04-01 11:29] VITALS: BMI 26.8
[2018-04-01 12:30] VITALS: BP 122/58
--- NOTE | 2018-04-02 05:08 | DIS ---
DATE OF ADMISSION: 03/26/2018 DATE OF DISCHARGE: 04/01/2018 DIAGNOSIS: Right-sided empyema. PROCEDURE: Right thoracotomy with total pulmonary decortication. DESCRIPTION OF HOSPITAL STAY: Mr. Stone was admitted with a loculated right-sided pleural effusion. He underwent a right thoracotomy, total pulmonary decortication. Postoperatively, he has done well. Cultures have been negative. Chest tubes were discontinued on 03/31/2018. Followup chest x-ray shows complete re-expansion of the lung except for the costophrenic angle, where there is a small amount of fluid. Remainder of his hospital stay, he has been sent to recovery room from surgery. At the time of discharge, he is ambulatory, tolerating regular diet, having good bowel and bladder function. Incisions are clean and dry without evidence of infection. Job ID: [id number]
--- NOTE | 2018-04-02 06:03 | DIS ---
DATE OF ADMISSION: 03/26/2018 DATE OF DISCHARGE: 04/01/2018 DISCHARGE DIAGNOSES: 1. Empyema of the right hemithorax, status post decortication. 2. Acute on chronic hypoxemic respiratory failure. 3. Chronic bronchiectasis. 4. Aortic stenosis, status post aortic valve replacement. 5. Hypertension, stable. CONSULTATIONS: 1. Dr. Jefferson Roger with Thoracic Surgery Service. 2. Dr. Bloom with Pulmonology Service. PERTINENT LAB AND X-RAY FINDINGS: Basic metabolic profile within normal limits. CBC showed a white blood cell count ranged between 12.0 to 23.8, hemoglobin ranged between 10.5 to 11.8. Right lung bacterial culture dated 03/26/2018, showed no growth in 5 days. No anaerobes isolated in 5 days. Portable chest x-ray dated 03/26/2018, showed small right pleural effusion. HOSPITAL COURSE: The patient was admitted to the Critical Care Unit after initially presenting with increased shortness of breath with acute on chronic hypoxemic respiratory failure. The patient was placed on empiric IV antibiotic therapy to include vancomycin and Zosyn, undergoing thoracotomy with total lung decortication on the right. The patient was managed with chest tube drainage x2 in the Critical Care Unit with eventual transfer to the telemetry unit. The patient was slow to clinically improve with increased drainage from the right hemithorax. The patient continued on antibiotic therapy as well as given general pulmonary supportive management. The patient's overall oxygen saturations improved with the decortication and chest tube drainage. The patient overall remained clinically stable, tolerating regular oral intake with stable vital signs. The patient received aggressive general pulmonary supportive management and stabilized at baseline oxygen requirement of 2 L/minute by nasal cannula. I have reviewed followup instructions with the patient at the time of discharge and discussed followup instructions. The patient verbalized understanding and in agreement, and ready for discharge on 04/01/2018. DISCHARGE MEDICATIONS: 1. Lipitor 10 mg p.o. at bedtime. 2. Symbicort 160/4.5 two puffs inhaled b.i.d. 3. Vitamin D3, 2000 units p.o. daily. 4. Finasteride 5 mg p.o. daily. 5. Gabapentin 300 mg p.o. b.i.d. 6. Plaquenil 200 mg p.o. b.i.d. 7. Lactobacillus one capsule p.o. daily. 8. Protonix 40 mg p.o. daily. 9. Tamsulosin 0.4 mg p.o. at bedtime. 10. Spiriva Respimat two inhalations daily. 11. Enteric-coated aspirin 325 mg p.o. daily. 12. [place] 5/325 mg one to two tablets p.o. q.8 hours p.r.n. 13. Levaquin 500 mg p.o. daily x14 days. 14. Prednisone 20 mg p.o. q.a.m. FOLLOWUP: 1. The patient will follow up with his primary care provider, Dr. Cris Shoemaker within 7 days of discharge. 2. The patient will follow up with Dr. Jefferson Roger with Thoracic Surgery Service within 2 weeks of discharge. 3. The patient may follow up with Dr. Bloom with Pulmonology Service within 10 days. CONDITION ON DISCHARGE: Fair. ACTIVITY: Ad-nuzhat. DIET: Regular. CODE STATUS: Full. DISPOSITION: Home on 04/01/2018. Job ID: [id number]
== END 2018-04-01 12:53 | disposition home or self-care (01) | DRG 163 ==
LOC: ERS 03:54 → 2NO 05:30 → CCU 11:21 → 2NO 03-28 12:09
PROVIDERS: ADMIT Hospitalist; ATTEND Hospitalist
PROC: 0BNK0ZZ Release Right Lung, Open Approach (ICD-10-PCS; principal; 2018-03-26)
DX: J86.9 Pyothorax without fistula (principal); J96.21 Acute and chronic respiratory failure with hypoxia; J47.9 Bronchiectasis, uncomplicated; I48.0 Paroxysmal atrial fibrillation; K21.9 Gastro-esophageal reflux disease without esophagitis; Z87.891 Personal history of nicotine dependence; M06.9 Rheumatoid arthritis, unspecified; I10 Essential (primary) hypertension; Z79.82 Long term (current) use of aspirin; I35.0 Nonrheumatic aortic (valve) stenosis; J44.9 Chronic obstructive pulmonary disease, unspecified; I25.10 Atherosclerotic heart disease of native coronary artery without angina pectoris; Z88.2 Allergy status to sulfonamides; Z88.1 Allergy status to other antibiotic agents; N40.0 Benign prostatic hyperplasia without lower urinary tract symptoms; Z95.3 Presence of xenogenic heart valve; Z98.1 Arthrodesis status
CPT/HCPCS: 36415; 36416; 71045; 71046; 80048; 80202; 82805; 85007; 85025; 85027; 87070; 87205; 94640; G8978-GP-CK; G8979-GP-CI; J0131; J0670; J1200; J1642; J1885; J1940; J2250; J2405; J2543; J2704; J2920; J2930; J3010; J3370; J3490; J7050; J7506; J7620; S0020

== ENCOUNTER 2018-04-24 13:44 | Outpatient (CLI) | payer MEDICARE ==
--- NOTE | 2018-04-24 15:59 | RAD ---
TWO VIEW CHEST SERIES: COMPARISON: 04/01/2018. INDICATION: Empyema. FINDINGS: There are bibasilar densities with obscuration of the hemidiaphragm and chronic-appearing elevation o f the lateral left hemidiaphragm. Interstitial prominence as well as patchy alveolar opacification i s seen at the lower lung zones. There is persistent pleural-based density along the lateral chest wa ll, mid aspect. Cardiomediastinal silhouette is stable. Lungs are hyperinflated. IMPRESSION: 1. Persistent pleural-based densities with adjacent parenchymal density at the inferior chest, bilat erally. 2. Recommend continued imaging followup. If there is persistent concern for emphysema, this would b e ore optimally evaluated with a contrast-enhanced CT thorax exam. POS: SAJAN
== END 2018-04-24 13:45 | disposition home or self-care (01) ==
LOC: RAD 13:44
PROVIDERS: ATTEND Family Medicine
DX: J86.9 Pyothorax without fistula (principal); R91.8 Other nonspecific abnormal finding of lung field
CPT/HCPCS: 71046

== ENCOUNTER 2018-05-21 10:18 | Outpatient (CLI) | payer MEDICARE ==
--- NOTE | 2018-05-21 11:17 | RAD ---
CHEST 2 VIEWS: HISTORY: Empyema. Dyspnea. Followup. COMPARISON: 04/24/2018. FINDINGS: Cardiac silhouette remains partially obscured by chronic parenchymal and pleural opacity at the right base. Thickening along the lateral portion of each chest wall is again demonstrated. Blunting of t he lateral costophrenic angle is stable. Mediastinum midline with postoperative changes and aortic calcification. No evidence of pneumothorax . Azygous fissure at the right apex is stable. IMPRESSION: Chronic bibasilar parenchymal and pleural opacities are stable. No new abnormalities are demonstrate d. POS: [facility]
== END 2018-05-21 10:19 | disposition home or self-care (01) ==
LOC: RAD 10:18
PROVIDERS: ATTEND Internal Medicine Pulmonary Disease
DX: R06.00 Dyspnea, unspecified (principal)
CPT/HCPCS: 71046

== ENCOUNTER 2018-10-30 12:43 | Outpatient (CLI) | payer MEDICARE ==
--- NOTE | 2018-10-30 15:06 | RAD ---
2 VIEW CHEST: Date: 10/30/18 HISTORY: Dyspnea. COMPARISON: 05/21/18. FINDINGS: Bilateral effusions and bibasilar atelectasis again noted. Upper lung zones remain clear of infiltrat e. Heart is mildly prominent, but stable. Postop sternotomy changes are noted. IMPRESSION: Bilateral effusions and bibasilar atelectasis or infiltrates, not changed from 05/21/18 indicating ch ronic change. POS: [facility]
== END 2018-10-30 12:44 | disposition home or self-care (01) ==
LOC: RAD 12:43
PROVIDERS: ATTEND Internal Medicine Pulmonary Disease
DX: R06.00 Dyspnea, unspecified (principal); J90 Pleural effusion, not elsewhere classified
CPT/HCPCS: 71046

== ENCOUNTER 2018-12-24 13:24 | Outpatient (CLI) | payer MEDICARE | END 2018-12-24 13:25 | disposition home or self-care (01) | LOC: CTENTCT 13:24 | PROVIDERS: ATTEND Specialist | DX: R51 Headache (principal) | CPT/HCPCS: 70486 ==

== ENCOUNTER 2019-10-13 10:22 | Outpatient (CLI) | payer MEDICARE ==
--- NOTE | 2019-10-13 12:39 | RAD ---
CHEST 2 VIEWS: HISTORY: Dyspnea. COMPARISON: 10/30/2018. FINDINGS: There is progressive bilateral costophrenic angle blunting. There also appear to be some increased l inear and interstitial changes, more prominent than on the prior study noted diffusely throughout bot h lungs. No new confluent process. Postop midline sternotomy. IMPRESSION: Minimal increased linear and interstitial changes throughout both lungs with increased blunting of th e costophrenic angle since the prior study. POS: [facility]
== END 2019-10-13 10:23 | disposition home or self-care (01) ==
LOC: BICRAD 10:22
PROVIDERS: ATTEND Internal Medicine Pulmonary Disease
DX: R06.00 Dyspnea, unspecified (principal)
CPT/HCPCS: 71046

== ENCOUNTER 2021-05-31 08:27 | Outpatient (CLI) | payer MEDICARE | END 2021-05-31 08:28 | disposition home or self-care (01) | LOC: RAD 08:27 | PROVIDERS: ATTEND Internal Medicine Critical Care Medicine | DX: R06.00 Dyspnea, unspecified (principal); J98.11 Atelectasis; R91.8 Other nonspecific abnormal finding of lung field | CPT/HCPCS: 71046 ==

== ENCOUNTER 2022-11-15 09:54 | Outpatient (CLI) | payer MEDICARE | END 2022-11-15 09:55 | disposition home or self-care (01) | LOC: RAD 09:54 | PROVIDERS: ATTEND Nurse Practitioner Family | DX: M48.062 Spinal stenosis, lumbar region with neurogenic claudication (principal); M54.2 Cervicalgia; M47.812 Spondylosis without myelopathy or radiculopathy, cervical region; M47.816 Spondylosis without myelopathy or radiculopathy, lumbar region | CPT/HCPCS: 72052; 72120 ==

== ENCOUNTER 2023-01-08 08:32 | Outpatient (CLI) | payer MEDICARE | END 2023-01-08 08:33 | disposition home or self-care (01) | LOC: RAD 08:32 | PROVIDERS: ATTEND Internal Medicine Critical Care Medicine | DX: R06.00 Dyspnea, unspecified (principal); J98.4 Other disorders of lung | CPT/HCPCS: 71046 ==

== ENCOUNTER 2023-11-01 10:58 | Outpatient (CLI) | payer MEDICARE | END 2023-11-01 10:59 | disposition home or self-care (01) | LOC: RAD 10:58 | PROVIDERS: ATTEND Internal Medicine Critical Care Medicine | DX: R06.00 Dyspnea, unspecified (principal); J90 Pleural effusion, not elsewhere classified | CPT/HCPCS: 71046 ==

== ENCOUNTER 2024-02-11 09:35 | Outpatient (CLI) | payer MEDICARE | END 2024-02-11 09:36 | disposition home or self-care (01) | LOC: RAD 09:35 | PROVIDERS: ATTEND Internal Medicine Critical Care Medicine | DX: R06.00 Dyspnea, unspecified (principal) | CPT/HCPCS: 71046 ==

== ENCOUNTER 2024-02-21 09:50 | Day surgery (SDC) | payer MEDICARE ==
[2024-02-20 11:47] VITALS: BMI 23.4
[2024-02-21] MEDS ORDERED: PROPOFOL 40 ML ONE (11:21)
[2024-02-21] MEDS ORDERED: Lidocaine 1% PF 5 ML VIAL ONE (11:21)
[2024-02-21] MEDS ORDERED: fentaNYL 50 mcg/mL 1 mL Vial ONE (12:16)
== END 2024-02-21 13:25 | disposition home or self-care (01) ==
LOC: SDC 09:50
PROVIDERS: ATTEND Internal Medicine Gastroenterology
PROC: 0D757ZZ Dilation of Esophagus, Via Natural or Artificial Opening (ICD-10-PCS; principal; 2024-02-21)
DX: K22.2 Esophageal obstruction (principal); R13.10 Dysphagia, unspecified; K22.9 Disease of esophagus, unspecified; R19.4 Change in bowel habit; K21.9 Gastro-esophageal reflux disease without esophagitis; K44.9 Diaphragmatic hernia without obstruction or gangrene; M06.9 Rheumatoid arthritis, unspecified; Z98.49 Cataract extraction status, unspecified eye; Z98.890 Other specified postprocedural states; Z79.899 Other long term (current) drug therapy; Z79.82 Long term (current) use of aspirin; Z88.1 Allergy status to other antibiotic agents; Z88.2 Allergy status to sulfonamides
CPT/HCPCS: 43235; 43450; J2704; J3010

== ENCOUNTER 2024-02-27 08:43 | Outpatient (CLI) | payer MEDICARE | END 2024-02-27 08:44 | disposition home or self-care (01) | LOC: BICCT 08:43 | PROVIDERS: ATTEND Internal Medicine Gastroenterology | DX: K21.9 Gastro-esophageal reflux disease without esophagitis (principal); R13.10 Dysphagia, unspecified; R10.30 Lower abdominal pain, unspecified; R19.4 Change in bowel habit; R91.8 Other nonspecific abnormal finding of lung field; J47.9 Bronchiectasis, uncomplicated; J98.09 Other diseases of bronchus, not elsewhere classified; N40.0 Benign prostatic hyperplasia without lower urinary tract symptoms | CPT/HCPCS: 74177; 82565 ==